=== PATIENT | female | born 1945 | race Caucasian/White ===

== ENCOUNTER 2021-01-22 12:44 | Outpatient (REF) | payer MEDICARE, SELFPAY ==
--- NOTE | ~2021-01-22 | MR_ITS ---
EXAMINATION: MRI BRAIN WITHOUT CONTRAST CLINICAL INFORMATION: Mild cognitive impairment with memory loss. COMPARISON: Brain MRI 12/13/2015. TECHNIQUE: Multiplanar MR imaging of the brain was performed without contrast. FINDINGS: There are scattered nonspecific foci of T2 FLAIR signal hyperintensity within the periventricular white matter. No acute territorial infarct. No pathological magnetic susceptibility artifact. Intracranial vascular flow voids are maintained. There is no intracranial mass effect midline shift. No abnormal extra-axial collection. Lateral and third ventricles are proportionate to the subarachnoid spaces. No hydrocephalus. Midline structures including the cervicomedullary junction are normal. No acute bone marrow signal changes. There is no mastoid middle ear effusion. Mild mucosal thickening within ethmoid air cells. Globes and orbits are symmetric. MR/MR head/brain wo con IMPRESSION: There are scattered chronic small vessel ischemic changes within the periventricular white matter that appear to have slightly progressed when compared to prior imaging from 12/13/2015. No acute territorial infarct or hemorrhage.
== END 2021-01-22 12:45 | disposition home or self-care (01) ==
LOC: HO.MRI 12:44
PROVIDERS: Visit Provider Psychiatry & Neurology Neurology
DX: G31.84 Mild cognitive impairment of uncertain or unknown etiology (principal)
CPT/HCPCS: 70551

== ENCOUNTER 2021-04-27 11:42 | Outpatient (REF) | payer MEDICARE, SELFPAY ==
[2021-04-27 14:05] LABS: MANUAL DIFF FLAG NO
[2021-04-27 14:08] LABS: Basophils Absolute Auto 0.1 X10*3/uL (0.0-0.2); Basophils Percent Auto 0.8 % (0-2); Eosinophils Absolute Auto 0.3 X10*3/uL (0.0-0.4); Eosinophils Percent Auto 4.2 % (0-4); Hematocrit 39.4 % (37-47); Hemoglobin 13.1 g/dl (12.0-16.0); Imm Gran Abs Auto 0.02 X10*3/uL (0.00-0.03); Imm Gran Pct Auto 0.3 % (0.0-0.4); Lymphocytes Percent Auto 27.7 % (20-40); Mean Corpuscular HGB Conc 33.2 g/dl (31.0-35.0); Mean Corpuscular Volume 90.2 fL (80-98); Mean Platelet Volume 9.7 fL (9.4-12.3); Monocytes Absolute Auto 0.8 X10*3/uL (0.1-1.2); Monocytes Percent Auto 11.2 % (2-11); Neutrophils Percent Auto 55.8 % (45-73); Platelet Count 273 X10*3/uL (160-400); Red Blood Count 4.37 X10*6/uL (4.20-5.50); Red Cell Distribution Width 12.4 % (11.0-16.0); White Blood Count 7.1 X10*3/uL (4.8-10.8)
[2021-04-27 14:42] LABS: Alanine Aminotransferase 58 U/L (0-31); Albumin Level 4.3 g/dL (3.5-5.0); Alkaline Phosphatase 74 U/L (39-117); Anion Gap 14 (12-20); Aspartate Amino Transferase 44 U/L (5-31); Bilirubin Total 0.5 mg/dL (0.0-1.0); Blood Urea Nitrogen 22 mg/dL (9-16); Calcium 9.6 mg/dL (8.4-10.2); Carbon Dioxide 27 mmol/L (22-29); Chloride 105 mmol/L (96-108); Cholesterol 171 mg/dL; Estimated Glomerular Filt Rate 53; Glucose Fasting 98 mg/dL (60-99); HDL Cholesterol 42 mg/dL; LDL Cholesterol Calculated 99 mg/dl; Potassium 3.8 mmol/L (3.3-5.1); Sodium 142 mmol/L (135-145); Total Protein 7.5 g/dL (6.5-8.0); Triglycerides 150 mg/dL
[2021-04-27 15:05] LABS: Free T4 (Free Thyroxine) 1.32 ng/dL (0.71-1.85); Thyroid Stimulating Hormone 0.02 uIU/mL (0.32-4.0); Vitamin D 25-OH Total 34.8 ng/mL (>30)
== END 2021-04-27 11:43 | disposition home or self-care (01) ==
LOC: HO.HMGCLDS 11:42
PROVIDERS: PCP Internal Medicine; Visit Provider Internal Medicine
DX: E03.9 Hypothyroidism, unspecified (principal); E78.5 Hyperlipidemia, unspecified; M81.0 Age-related osteoporosis without current pathological fracture; S72.001A Fracture of unspecified part of neck of right femur, initial encounter for closed fracture; Z78.0 Asymptomatic menopausal state
CPT/HCPCS: 36415; 80053; 80061; 82306; 84439; 84443; 85025

== ENCOUNTER 2021-07-26 09:49 | Outpatient (REF) | payer MEDICARE, SELFPAY ==
[2021-07-26 11:16] LABS: Appearance Urine CLEAR; Color Urine YELLOW; Glucose Urine UA NEG (NEG); Leukocyte Esterase Urine TRACE (NEG); Nitrite Urine NEG (NEG); UACC Culture Trigger YES; Urine Blood NEG (NEG); Urine Ketones NEG (NEG); Urine Protein NEG (NEG-TRACE)
[2021-07-26 11:39] LABS: RBC Urine 0 /HPF (0); Squamous Epithelial Cell Urine 1+ /LPF; WBC Urine 0-2 /HPF (0-4)
== END 2021-07-26 09:50 | disposition home or self-care (01) ==
LOC: HO.HMGCLDS 09:49
PROVIDERS: PCP Internal Medicine; Visit Provider Internal Medicine
DX: R41.0 Disorientation, unspecified (principal)
CPT/HCPCS: 81001; 87086

== ENCOUNTER 2021-07-31 10:21 | Outpatient (REF) | payer MEDICARE, SELFPAY ==
[2021-07-31 11:47] LABS: Appearance Urine CLEAR; Color Urine YELLOW; Glucose Urine UA NEG (NEG); Leukocyte Esterase Urine NEG (NEG); Nitrite Urine NEG (NEG); Urine Blood NEG (NEG); Urine Ketones NEG (NEG); Urine Protein NEG (NEG-TRACE)
[2021-07-31 11:48] LABS: MANUAL DIFF FLAG NO
[2021-07-31 11:52] LABS: Basophils Absolute Auto 0.1 X10*3/uL (0.0-0.2); Basophils Percent Auto 0.8 % (0-2); Eosinophils Absolute Auto 0.2 X10*3/uL (0.0-0.4); Eosinophils Percent Auto 3.6 % (0-4); Hematocrit 40.9 % (37.0-47.0); Hemoglobin 13.2 g/dl (12.0-16.0); Imm Gran Abs Auto 0.01 X10*3/uL (0.00-0.03); Imm Gran Pct Auto 0.2 % (0.0-0.4); Lymphocytes Absolute Auto 1.9 X10*3/uL (1.2-4.9); Mean Corpuscular HGB Conc 32.3 g/dl (31.0-35.0); Mean Corpuscular Volume 89.9 fL (80.0-98.0); Mean Platelet Volume 10.5 fL (9.4-12.3); Monocytes Absolute Auto 0.6 X10*3/uL (0.1-1.2); Neutrophils Absolute Auto 3.6 x10*3/uL (2.0-8.3); Neutrophils Percent Auto 56.4 % (45-73); Platelet Count 250 X10*3/uL (160-400); Red Blood Count 4.55 X10*6/uL (4.20-5.50); Red Cell Distribution Width 12.5 % (11.0-16.0); White Blood Count 6.4 X10*3/uL (4.8-10.8)
[2021-07-31 12:19] LABS: Alanine Aminotransferase 46 U/L (0-31); Anion Gap 14 (12-20); Aspartate Amino Transferase 38 U/L (5-31); Blood Urea Nitrogen 12 mg/dL (9-16); Calcium 9.6 mg/dL (8.4-10.2); Carbon Dioxide 27 mmol/L (22-29); Chloride 102 mmol/L (96-108); Cholesterol 157 mg/dL; Estimated Glomerular Filt Rate 43; Glucose Fasting 100 mg/dL (60-99); HDL Cholesterol 41 mg/dL; LDL Cholesterol Calculated 89 mg/dl; Potassium 4.1 mmol/L (3.3-5.1); Sodium 139 mmol/L (135-145); Triglycerides 135 mg/dL
[2021-07-31 12:46] LABS: Free T4 (Free Thyroxine) 1.46 ng/dL (0.71-1.85); Thyroid Stimulating Hormone 0.01 uIU/mL (0.32-4.0); Vitamin D 25-OH Total 37.4 ng/mL (>30)
[2021-07-31 13:13] LABS: Folate > 20.0 ng/mL (> or = 4.0); Vitamin B12 510 pg/mL (200-900)
== END 2021-07-31 10:22 | disposition home or self-care (01) ==
LOC: HO.HMGCLDS 10:21
PROVIDERS: PCP Internal Medicine; Visit Provider Internal Medicine
DX: E03.9 Hypothyroidism, unspecified (principal); E78.5 Hyperlipidemia, unspecified; I10 Essential (primary) hypertension; G31.84 Mild cognitive impairment of uncertain or unknown etiology; G40.209 Localization-related (focal) (partial) symptomatic epilepsy and epileptic syndromes with complex partial seizures, not intractable, without status epilepticus; M81.0 Age-related osteoporosis without current pathological fracture
CPT/HCPCS: 36415; 80048; 80061; 81003; 82306; 82607; 82746; 84439; 84443; 84450; 84460; 85025

== ENCOUNTER 2021-09-04 13:55 | Outpatient (REF) | payer MEDICARE, SELFPAY ==
--- NOTE | ~2021-09-04 | MM_ITS ---
EXAMINATION: BONE DENSITOMETRY CLINICAL INDICATION: Asymptomatic menopausal state. COMPARISON: Baseline BD dated 01/15/2019. TECHNIQUE: Using a [employer] DXA System (software version: 13.1) manufactured by [employer], dual-energy x-ray absorptiometry was performed of the lumbar spine and left hip. The images are of good technical quality. Summary results are attached. FINDINGS: AP SPINE L1-L2 (excluding L3 and L4): The data of L1-L4 has been changed to exclude the L3 and L4 vertebral bodies, because degenerative changes at these levels may cause overestimation of lumbar spine density. Current: BMD 0.901 g/cm2, Z-score -1.0, T-score -2.2, osteopenia, 1.1% decrease from baseline (<5% change is not significant). Baseline: BMD 0.911 g/cm2. LEFT FEMUR, NECK: Current: BMD 0.537 g/cm2, Z-score -2.1, T-score -3.6, osteoporosis. Baseline: BMD 0.667 g/cm2. LEFT FEMUR, TOTAL: Current: BMD 0.598 g/cm2, Z-score -1.9, T-score -3.3, osteoporosis, 8.8% decrease from baseline (<5% change is not significant). Baseline: BMD 0.656 g/cm2. IDENTIFIED RISK FACTORS: Recurrent falls, height loss, history of fracture (adult), menopause. HISTORY OF FRACTURE: Spine, femur/hip. MEDICATIONS: Calcium supplements or multivitamin, vitamin D, bisphosphonates. MM/XR DEXA axial skeleton IMPRESSION: 1. DIAGNOSIS: Severe osteoporosis based on the lowest T-score value of -3.6 in the femur neck and fracture history applying World Health Organization criteria. 2. 10-YEAR FRACTURE RISK PREDICTION, FRAX: According to the guidelines, FRAX calculation should only be performed on patients in the osteopenia bone density category. 3. Treatment Recommendations: NOF guidelines recommend consideration for treatment in postmenopausal women and men age 50 and older presenting with the following: -A hip or vertebral (clinical or morphometric) fracture. -T-score less than or equal to -2.5 at the femoral neck or spine after appropriate evaluation to exclude secondary causes. -Low bone mass at the hip or spine and a 10-year fracture probability by FRAX of greater than or equal to 3% for hip fracture or greater than or equal to 20% for major osteoporotic fracture based on the [place] adapted WHO algorithm. 4. Other Recommendations: All treatment decisions require clinical judgment and consideration of individual patient factors, including patient preferences, comorbidities, previous drug use, risk factors not captured in the FRAX model (e.g. frailty, falls, vitamin D deficiency, increased bone turnover, interval significant decline in bone density) and possible under or overestimation of fracture risk by FRAX. Additional medical evaluation for secondary cause of low bone mineral density may be appropriate. FUTURE SCAN RECOMMENDATION: People with diagnosed cases of osteoporosis or at high risk for fracture should have regular bone mineral density tests. For patients eligible for Medicare, routine testing is allowed once every 2 years. The testing frequency can be increased to one year for patients who have rapidly progressing disease, those who are receiving or discontinuing medical therapy to restore bone mass, or have additional risk factors.
--- NOTE | ~2021-09-04 | MM_ITS ---
EXAMINATION: MM SCREENING DIGITAL BREAST TOMOSYNTHESIS, BILATERAL CLINICAL INFORMATION: Screening. Asymptomatic. The lifetime risk of breast cancer based on the Tyrer-Cuzick Model is 7%. COMPARISON: Mammography: 02/04/2019, 06/27/2006 TECHNIQUE: Digital breast tomosynthesis is performed in both the craniocaudal and mediolateral oblique views along with computer-aided detection (CAD). Synthesized 2D images are generated from the tomosynthesis. Additional exaggerated left CC view is provided. FINDINGS: There are scattered areas of fibroglandular density (ACR BI-RADS breast composition Category b). There are no significant masses, abnormal calcifications, or other abnormalities. Parenchymal pattern is similar to prior studies. There is small dermal lesion overlying the posterior lower right breast. MM/MM tomosynthesis screening BI IMPRESSION: No mammographic evidence of malignancy. ASSESSMENT: BI-RADS 2: Benign RECOMMENDATION: Routine annual mammography screening. This patient's information was entered into a reminder system with a target due date for their next mammogram.
== END 2021-09-04 13:56 | disposition home or self-care (01) ==
LOC: HO.MAMMO 13:55
PROVIDERS: Visit Provider Internal Medicine
DX: Z12.31 Encounter for screening mammogram for malignant neoplasm of breast (principal); Z13.820 Encounter for screening for osteoporosis; M81.0 Age-related osteoporosis without current pathological fracture; Z78.0 Asymptomatic menopausal state; Z79.899 Other long term (current) drug therapy
CPT/HCPCS: 77063; 77067; 77080

== ENCOUNTER 2021-12-04 11:47 | Outpatient (REF) | payer OTHER, SELFPAY ==
[2021-12-04 14:05] LABS: Alanine Aminotransferase 33 U/L (0-31); Anion Gap 11 (12-20); Aspartate Amino Transferase 30 U/L (5-31); Blood Urea Nitrogen 22 mg/dL (9-16); Calcium 10.1 mg/dL (8.4-10.2); Carbon Dioxide 28 mmol/L (22-29); Chloride 106 mmol/L (96-108); Cholesterol 136 mg/dL; Estimated Glomerular Filt Rate 45; Glucose Fasting 101 mg/dL (60-99); HDL Cholesterol 43 mg/dL; LDL Cholesterol Calculated 73 mg/dl; Sodium 141 mmol/L (135-145); Triglycerides 101 mg/dL
[2021-12-04 14:39] LABS: Free T4 (Free Thyroxine) 2.06 ng/dL (0.71-1.85); Thyroid Stimulating Hormone 0.01 uIU/mL (0.32-4.0)
== END 2021-12-04 11:48 | disposition home or self-care (01) ==
LOC: HO.HMGCLDS 11:47
PROVIDERS: Visit Provider Internal Medicine
DX: E03.9 Hypothyroidism, unspecified (principal); M81.0 Age-related osteoporosis without current pathological fracture; E78.5 Hyperlipidemia, unspecified; Z78.0 Asymptomatic menopausal state
CPT/HCPCS: 36415; 80048; 80061; 82306; 84439; 84443; 84450; 84460

== ENCOUNTER → 2022-03-08 14:14 | Outpatient (BNVA) | payer OTHER, SELFPAY | PROVIDERS: PCP Internal Medicine; Visit Provider Internal Medicine Endocrinology, Diabetes & Metabolism | DX: M81.0 Age-related osteoporosis without current pathological fracture (principal) | CPT/HCPCS: 99202 ==

== ENCOUNTER 2022-03-13 12:06 | Outpatient (REF) | payer OTHER, SELFPAY ==
[2022-03-13 14:20] LABS: Phosphorus 4.3 mg/dL (2.7-4.5)
[2022-03-16 22:37] LABS: Prot Elec - Albumin 4.3 g/dL (3.8-4.8); Prot Elec - Alpha1 0.3 g/dL (0.2-0.3); Prot Elec - Alpha2 0.9 g/dL (0.5-0.9); Prot Elec - Beta 1 0.5 g/dL (0.4-0.6); Prot Elec - Beta 2 0.5 g/dL (0.2-0.5); Prot Elec - Gamma 1.1 g/dL (0.8-1.7); Prot Elec - Total Protein 7.6 g/dL (6.1-8.1)
== END 2022-03-13 12:07 | disposition home or self-care (01) ==
LOC: HO.HMGCLDS 12:06
PROVIDERS: PCP Internal Medicine; Visit Provider Internal Medicine Endocrinology, Diabetes & Metabolism
DX: M81.0 Age-related osteoporosis without current pathological fracture (principal)
CPT/HCPCS: 84100; 84165; 86335

== ENCOUNTER 2022-03-23 10:50 | Outpatient (REF) | payer OTHER, SELFPAY ==
[2022-03-23 13:41] LABS: Free T4 (Free Thyroxine) 1.33 ng/dL (0.71-1.85); Thyroid Stimulating Hormone 0.02 uIU/mL (0.32-4.0)
== END 2022-03-23 10:51 | disposition home or self-care (01) ==
LOC: HO.HMGCLDS 10:50
PROVIDERS: PCP Internal Medicine; Visit Provider Internal Medicine
DX: E03.9 Hypothyroidism, unspecified (principal)
CPT/HCPCS: 36415; 84439; 84443

== ENCOUNTER → 2022-06-14 12:42 | Outpatient (BNVA) | payer OTHER, SELFPAY | PROVIDERS: PCP Internal Medicine; Visit Provider Internal Medicine Endocrinology, Diabetes & Metabolism | DX: M81.0 Age-related osteoporosis without current pathological fracture (principal) | CPT/HCPCS: 99212 ==

== ENCOUNTER → 2022-09-13 13:13 | Outpatient (BNVA) | payer OTHER, SELFPAY | PROVIDERS: PCP Internal Medicine; Visit Provider Internal Medicine Endocrinology, Diabetes & Metabolism | DX: M81.0 Age-related osteoporosis without current pathological fracture (principal) | CPT/HCPCS: 99212 ==

== ENCOUNTER → 2022-09-26 16:06 | Outpatient (BNVA) | payer OTHER, SELFPAY | PROVIDERS: PCP Internal Medicine; Visit Provider Internal Medicine Endocrinology, Diabetes & Metabolism | DX: M81.0 Age-related osteoporosis without current pathological fracture (principal) | CPT/HCPCS: 99212 ==

== ENCOUNTER 2022-12-07 11:44 | Outpatient (REF) | payer OTHER, SELFPAY ==
[2022-12-07 13:48] LABS: Anion Gap 13 (12-20); Blood Urea Nitrogen 26 mg/dL (9-16); Calcium 10.9 mg/dL (8.4-10.2); Carbon Dioxide 28 mmol/L (22-29); Chloride 105 mmol/L (96-108); Estimated Glomerular Filt Rate 38; Glucose Fasting 103 mg/dL (60-99); Potassium 4.1 mmol/L (3.3-5.1); Sodium 142 mmol/L (135-145)
[2022-12-07 14:05] LABS: Free T4 (Free Thyroxine) 1.31 ng/dL (0.71-1.85)
== END 2022-12-07 11:45 | disposition home or self-care (01) ==
LOC: HO.HMGCLDS 11:44
PROVIDERS: PCP Internal Medicine; Visit Provider Internal Medicine
DX: E03.9 Hypothyroidism, unspecified (principal); E78.5 Hyperlipidemia, unspecified; I10 Essential (primary) hypertension
CPT/HCPCS: 36415; 80048; 84439

== ENCOUNTER 2023-01-17 11:35 | Outpatient (REF) | payer OTHER, SELFPAY ==
[2023-01-17 14:26] LABS: Anion Gap 13 (12-20); Blood Urea Nitrogen 20 mg/dL (9-16); Calcium 9.8 mg/dL (8.4-10.2); Carbon Dioxide 29 mmol/L (22-29); Chloride 107 mmol/L (96-108); Cholesterol 141 mg/dL; Estimated Glomerular Filt Rate 41; Glucose Fasting 94 mg/dL (60-99); HDL Cholesterol 47 mg/dL; LDL Cholesterol Calculated 77 mg/dl; Sodium 145 mmol/L (135-145); Triglycerides 86 mg/dL
[2023-01-20 15:24] LABS: Calcium (PTHI) 9.8 mg/dL (8.6-10.4); PTHI 33 pg/mL (16-77)
[2023-01-21 07:24] LABS: Calcium, Ionized 5.1 mg/dL (4.7-5.5)
== END 2023-01-17 11:36 | disposition home or self-care (01) ==
LOC: HO.HMGCLDS 11:35
PROVIDERS: PCP Internal Medicine; Visit Provider Internal Medicine
DX: E78.5 Hyperlipidemia, unspecified (principal); E83.52 Hypercalcemia; R79.89 Other specified abnormal findings of blood chemistry; I10 Essential (primary) hypertension
CPT/HCPCS: 36415; 80048; 80061; 82330; 83970

== ENCOUNTER 2023-03-28 12:39 | Outpatient (AMB) | payer OTHER, SELFPAY ==
[2023-03-28 13:00] VITALS: BP 110/58; PULSE 66; BMI 23.6
--- NOTE | 2023-03-28 13:00 | A.OFFVIS_ITS ---
Intake Vital Signs 03/28/23 13:00 Height 5 ft 7.4 in Weight 152 lb 8.958 oz BMI 23.6 BP 110/58 L Blood Pressure Location Rt brachial Position Sitting Pulse 66 Intake Visit Reasons: f/u osteoporosis Intake Note: Pt is here for osteoporosis follow-up Preparer Making Department Required: No Accompanied by: Self / Same As Patient Allergies amoxicillin Allergy (Unknown, Verified 03/28/23 13:06) throat swelling ibuprofen [From Advil] Allergy (Unknown, Verified 03/28/23 13:06) vomitting Penicillins Allergy (Unknown, Verified 03/28/23 13:06) throat swelling Sulfa (Sulfonamide Antibiotics) Allergy (Unknown, Verified 03/28/23 13:06) severe hives lisinopril Adverse Reaction (Unknown, Verified 03/28/23 13:06) cough sodium chloride Adverse Reaction (Unknown, Verified 03/28/23 13:06) vomiting Medication List - Last Reconciled 03/28/23 by Tej Heath abaloparatide (Tymlos) 80 mcg (0.04 mL) subcut DAILY [adult disposable [id number] As directed] aspirin (Adult Aspirin Regimen) 81 mg PO DAILY atorvastatin 10 mg PO DAILY clonazepam 1 mg PO BEDTIME PRN hydrochlorothiazide 25 mg PO QAM lamotrigine 100 mg PO BID levothyroxine 150 mcg PO DAILY losartan 100 mg PO DAILY metoprolol succinate ER 50 mg PO QAM paroxetine HCl 40 mg PO DAILY trazodone 200 mg PO BEDTIME HPI HPI Comments History of Present Illness Details 77 YO [Female] with is seen in consultation at the request of PCP for Osteoporosis. Patient is a poor historian and she comes with a [employer] with does not have much knowledge of her history First diagnosed in 40 yrs ago? . Received treatment in the past with alendronate ,unclear how long . Not sure why stopped . History of pathologic fracture R hip in 2017 and pelvis fx 2 yrs ago Not taking servings of dietary calcium per day Not Takes Calcium supplement . Takes MVI with IU of Vitamin D daily. Denies ever using PPI, anticoagulant, takes antiepileptic or glucocorticoid medication. 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 UTD on dental cleanings and sees dentist every [address] There is planned upcoming dental work but no extractions. DXA dated 09/04/2021:AP SPINE L1-L2 (excluding L3 and L4): The data of L1-L4 has been changed to exclude the L3 and L4 vertebral bodies, because degenerative changes at these levels may cause overestimation of lumbar spine density. Current: BMD 0.901 g/cm2, Z-score -1.0, T-score -2.2, osteopenia, 1.1% decrease from baseline (<5% change is not significant). Baseline: BMD 0.911 g/cm2. LEFT FEMUR, NECK: Current: BMD 0.537 g/cm2, Z-score -2.1, T-score -3.6, osteoporosis. Baseline: BMD 0.667 g/cm2. LEFT FEMUR, TOTAL: Current: BMD 0.598 g/cm2, Z-score -1.9, T-score -3.3, osteoporosis, 8.8% decrease from baseline (<5% change is not significant). Baseline: BMD 0.656 g/cm2. Labs: secondary workup was negative. Patient was taking Tymlos. Tolerated Tymlos nicely, Started 12/2022 for about 3 mos PFSH Medical History (Updated 12/09/22 @ 14:13 by Lori Frank MD) Acquired hypothyroidism Alzheimer's dementia Bipolar disorder Breast cancer screening by mammogram Breast cancer screening by mammogram Complex partial seizure Displaced fracture of right femoral neck Dyslipidemia Elevated serum creatinine Essential hypertension Hearing impairment Hypercalcemia Lumbar stenosis Memory difficulties Mild cognitive impairment with memory loss Osteoporosis Pain of right lateral upper thigh Postmenopause Recurrent falls Surgical History History of dental surgery History of hip surgery History of right hip hemiarthroplasty Tongue lesion Family History Father Lung cancer Smoker Substance use disorder Mother HTN (hypertension) Diabetes mellitus CVD (cardiovascular disease) Substance use disorder Breast cancer Brother Schizophrenia Sister Depression Sister Substance use disorder Sister No problems noted. Sister No problems noted. Daughter No problems noted. Brother Substance use disorder Brother Mental health disorder Social History Housing: House Patient Tobacco Use Status: Former Tobacco user Years Smoked: 28 yrs e-Cigarette/Vaping Use: Never Used service: No Current occupational status: disabled Cognitive needs: No Hearing needs: No Vision needs: Yes Physical Exam Vital Signs: BMI result Body Mass Index 23.6 Assessment & Plan Assessment & Plan (1) Osteoporosis: Code(s): M81.0 - Age-related osteoporosis without current pathological fracture Plan: This 76-year-old white female with a history of osteoporosis and R femur fracturein 2017. Took alendronate in past. secondary workup was negative Plan is to continue the Tymlos. Coding Level of Care Code Est Pt Level 3 (22892) Diagnoses Osteoporosis M81.0
== END 2023-03-28 13:16 | disposition home or self-care (01) ==
PROVIDERS: PCP Internal Medicine; Referring Provider Internal Medicine; Visit Provider Internal Medicine Endocrinology, Diabetes & Metabolism
DX: M81.0 Age-related osteoporosis without current pathological fracture (principal)
CPT/HCPCS: 99213

== ENCOUNTER → 2023-03-28 12:39 | Outpatient (BNVA) | payer OTHER, SELFPAY | PROVIDERS: Visit Provider Internal Medicine Endocrinology, Diabetes & Metabolism | DX: M81.0 Age-related osteoporosis without current pathological fracture (principal) | CPT/HCPCS: 99212 ==

== ENCOUNTER 2024-03-10 13:26 | Outpatient (AMB) | payer OTHER, SELFPAY ==
[2024-03-10 13:29] VITALS: BP 140/80; PULSE 62; O2SAT 96; BMI 25.2
--- NOTE | 2024-03-10 13:29 | A.OFFPC_ITS ---
Vital Signs 03/10/24 13:29 Height 5 ft 7 in Weight 161 lb BMI 25.2 BP 140/80 H Blood Pressure Location Rt brachial Position Sitting Pulse 62 Pulse Source Pulse Oximeter Pulse Oximetry (%) 96 Oxygen Delivery Method Room Air Intake Visit Reasons: Followup meds Intake Note: Pt is here today f/u meds and c/o shakes Allergies amoxicillin Allergy (Unknown, Verified 03/10/24 13:52) throat swelling ibuprofen [From Advil] Allergy (Unknown, Verified 03/10/24 13:52) vomitting Penicillins Allergy (Unknown, Verified 03/10/24 13:52) throat swelling Sulfa (Sulfonamide Antibiotics) Allergy (Unknown, Verified 03/10/24 13:52) severe hives lisinopril Adverse Reaction (Unknown, Verified 03/10/24 13:52) cough sodium chloride Adverse Reaction (Unknown, Verified 03/10/24 13:52) vomiting Medication List - Last Reconciled 03/10/24 by Lori Frank MD abaloparatide (Tymlos) 80 mcg (0.04 mL) subcut DAILY [adult disposable uwxtba-Iumo-xmg As directed] aspirin (Adult Aspirin Regimen) 81 mg PO DAILY atorvastatin 10 mg PO DAILY clonazepam 1 mg PO BEDTIME PRN hydrochlorothiazide 25 mg PO QAM lamotrigine 100 mg PO BID levothyroxine 150 mcg PO DAILY losartan 100 mg PO DAILY metoprolol succinate ER 50 mg PO QAM paroxetine HCl 40 mg PO DAILY trazodone 200 mg PO BEDTIME Tobacco use date assessed: 03/10/24 Fall risk assessment: 1 Fall in past year Last assessed Fall Risk: 03/10/24 Dental Screening Did you have a dental visit in the last 12 months?: Yes Did you have a dental problem in the last 6 months where you did not have access to dental care?: Yes Was dental information given to patient?: Patient has dentist HPI Followup meds HPI Details 78 year-old lady here today follow-up on her lipids, hypothyroidism, hypertension. Has osteoporosis currently on Tymlos, sees Dr. Means. She has been feeling well, no complaints of chest pain or headaches or lightheadedness. She however has been noticing frequent shaking in her hands especially when she has to repeat for something. Has been present now for the last several month. However denies having any difficulty eating, and has not been dropping things. Has not interfered with her day-to-day activities but it does bother her when she is outside, and is self-conscious about it. [facility] Medical History (Updated 03/21/24 @ 23:24 by Lori Frank MD) Unsteady gait when walking Tremor of both outstretched hands Hypercalcemia Elevated serum creatinine Alzheimer's dementia Essential hypertension Hearing impairment Displaced fracture of right femoral neck Lumbar stenosis Mild cognitive impairment with memory loss Complex partial seizure Breast cancer screening by mammogram Postmenopause Breast cancer screening by mammogram Bipolar disorder Memory difficulties Acquired hypothyroidism Osteoporosis Dyslipidemia Recurrent falls Pain of right lateral upper thigh Surgical History History of right hip hemiarthroplasty Tongue lesion History of hip surgery History of dental surgery Family History Father Lung cancer Smoker Substance use disorder Mother HTN (hypertension) Diabetes mellitus CVD (cardiovascular disease) Substance use disorder Breast cancer Brother Schizophrenia Sister Depression Sister Substance use disorder Sister No problems noted. Sister No problems noted. Daughter No problems noted. Brother Substance use disorder Brother Mental health disorder Social History Housing: House Patient Tobacco Use Status: Former Tobacco user Years Smoked: 28 yrs e-Cigarette/Vaping Use: Never Used service: No Current occupational status: disabled Cognitive needs: No Hearing needs: No Vision needs: Yes Questionnaire PHQ-9 Over the last 2 weeks, how often have you been bothered by any of the following problems? 1. Little interest or pleasure in doing things: several days 2. Feeling down, depressed, or hopeless: several days 3. Trouble falling or staying asleep, or sleeping too much: several days 4. Feeling tired or having little energy: several days 5. Poor appetite or overeating: not at all 6. Feeling bad about yourself - or that you are a failure or have let yourself or your family down: not at all 7. Trouble concentrating on things, such as reading the newspaper or watching television: not at all 8. Moving or speaking so slowly that other people could have noticed. Or the opposite - being so fidgety or restless that you have been moving around a lot more than usual: not at all 9. Thoughts that you would be better off or of hurting yourself in some way: not at all Total score: 4 Depression Screening Interpretation: Positive (has Bipolar d/o , ff'd by psychiatry and goes to therapy) Depression Screening Follow-up: Existing condition, In treatment and Community Mental Health Worker F/U Depression Screening Done: Yes 26994 - PHQ-9 Billing: Yes Source: Developed by Drs. Jacinto Burrows, Genesis Hubbard, David Clements and colleagues, with an educational akash from [employer]. Thrive Questionnaire Date Thrive assessed: 03/10/24 I am a: Patient What is your living situation today?: I have a steady place to live Within the past 12 months, did the food you bought not last and you didn't have the money to get more?: Never true Within the past 12 months, did you worry whether your food would run out before you got money to buy more?: Never true Do you have trouble paying for medicines?: No Do you have trouble getting transportation to medical appointments?: No Do you have trouble paying your heating and electricity bill?: No Do you have trouble taking care of your child, family member or friend?: No Do you have trouble with day-to-day activities such as bathing, preparing meals, shopping, managing finances, etc.?: No Are you currently unemployed and looking for a job?: No Are you interested in more education?: No THRIVE Score: 0 AUDIT C Alcohol Use Questionnaire (AUDIT-C) 1. How often do you have a drink containing alcohol?: Never Total Score: 0 DRE-7 AMB Questionnaire DRE-7 Date DRE - 7 assessed: 03/10/24 Feeling nervous, anxious, or on edge: 1 = Several days Not being able to stop or control worryin = Several days Worrying too much about different things: 1 = Several days Trouble relaxin = Not at all Being so restless that it is hard to sit still: 0 = Not at all Becoming easily annoyed or irritable: 0 = Not at all Feeling afraid as if something awful might happen: 0 = Not at all Total DRE-7 score (0-4 normal; 5-9 mild; 10-14 moderate; 15-21 severe): 3 Source: Developed by Drs. Jacinto Burrows, Genesis Hubbard, David Clements and colleagues, with an educational akash from [employer]. DRE-7 Assessment Billing DRE-7 Assessment Tool: DRE-7 Assessment 01644 Review of Systems Const Denies fatigue, Denies fever(s) and Denies headache(s) Eyes Reports no additional complaints ENT Denies vertigo, Denies dizziness, Denies headache(s) and Reports hearing loss Card Denies chest pain, Denies rapid heart rate, Denies irregular heart rhythm, Denies palpitations and Denies dyspnea Resp Denies cough and Denies dyspnea GI Reports no additional complaints Reports no additional complaints Musc Reports abnormal gait (Uses a cane), Reports back pain (Lower back), Denies myalgias, Reports arthralgias (Right hip), Denies joint swelling, Reports numbness (Toes in her feet) and Reports stiffness Skin/Breast Reports nail changes (Thick, deformity in nail in both feet) Neuro Reports abnormal gait (Uses a cane), Denies vertigo, Denies dizziness, Denies headache(s), Reports memory loss, Reports numbness (Toes in her feet) and Denies seizure-like activity Psych Reports as per HPI (Followed by Dr. Manrique and gets regular counseling) and Reports memory loss Endo Reports no additional complaints, Denies fatigue and Denies palpitations Trung/Lymph Reports no additional complaints Aller/Immun Reports no additional complaints Physical exam (Primary Care) Vital Signs: Last Vital Signs Pulse 62 03/10/24 13:29 BP 140/80 H 03/10/24 13:29 Pulse Ox 96 03/10/24 13:29 Oxygen Delivery Method Room Air 03/10/24 13:29 BMI result Body Mass Index 25.2 Tobacco/Smoking Status: Tobacco use Status Tobacco use date assessed 03/10/24 03/10/24 13:41 Patient Tobacco Use Status Former Tobacco user 03/10/24 13:30 e-Cigarette/Vaping Use Never Used 03/10/24 13:30 PHQ-9: PHQ-9 Score PHQ-9: Total score 7 03/11/24 11:27 Depression Screening Interpretation: Positive (has Bipolar d/o , ff'd by psychiatry and goes to therapy) Depression Screening Follow-up: Existing condition, In treatment and Community Mental Health Worker F/U Thrive Assessment: Date of Thrive Assessment Date Thrive assessed 03/10/24 03/10/24 13:43 Const Other: Const General:?healthy appearing, comfortable and no acute distress, accompanied by daughter Orientation/consciousness:?patient oriented x3 Limitations:?walks with cane HENMT General nose exam:?Normal external nose present, Normal nasal mucous membranes , no nasal discharge present Mouth:?Normal oral and palatal mucosa present, oropharynx normal and moist mucous membranes Eyes General:?appearance normal, both eyes and all related structures Neck Neck:?Yes full ROM, Yes no lymphadenopathy and Yes supple Resp Effort & Inspection:?normal respiratory effort and able to speak in complete sentences Auscultation:?clear to auscultation bilaterally Cardio Rate:?regular rate Rhythm:?regular rhythm Heart sounds:?S1 normal heart sound present and S2 normal heart sound present GI Inspection:?Yes normal to inspection Palpation (GI):?Soft to palpation, nontender and no masses Auscultation:?normal bowel sounds Neuro General:?patient oriented x3, positive intentional tremors noted in both hands Cranial nerves:?Yes Equal, round and reactive pupils present Cognition (Neuro):?normal cognition Motor exam (neuro):?5/5 motor strength present throughout Extrem General:?Yes no joint enlargement, Yes no pedal edema and Yes no calf tenderness Assessment and Plan Assessment & Plan (1) Tremor of both outstretched hands: Code(s): R25.1 - Tremor, unspecified Plan: Likely essential tremors, will order vitamin B12, TSH vitamin-D and folic acid level. Neurology consult ordered (2) Dyslipidemia: Code(s): E78.5 - Hyperlipidemia, unspecified Plan: Fasting lipid panel ordered, continue on atorvastatin 10 mg daily, reinforced importance of following a low-cholesterol diet and staying active. (3) Osteoporosis: Code(s): M81.0 - Age-related osteoporosis without current pathological fracture Qualifiers: Osteoporosis type: age-related Presence of current pathological fracture: without current pathological fracture Qualified Code(s): M81.0 - Age- related osteoporosis without current pathological fracture Plan: Currently on Tymlos, followed by Dr. Means (4) Acquired hypothyroidism: Code(s): E03.9 - Hypothyroidism, unspecified Plan: Ordered free T4 and TSH level, currently on levothyroxine 150 mcg taken daily in a.m. (5) Essential hypertension: Code(s): I10 - Essential (primary) hypertension (6) Breast cancer screening by mammogram: Code(s): Z12.31 - Encounter for screening mammogram for malignant neoplasm of breast Plan: Screening mammogram ordered Plan Continue metoprolol succinate ER 50 mg daily in a.m., losartan 100 mg daily and hydrochlorothiazide 25 mg 1 tablet in a.m.. Reinforced importance of following a low-salt diet Orders: Orders Vitamin D 25-OH Total 03/10/24 M81.0 - Age-related osteoporosis without current pathological fracture, E78.5 - Hyperlipidemia, unspecified, E03.9 - Hypothyroidism, unspecified, I10 - Essential (primary) hypertension Vitamin B12 and Folate 03/10/24 M81.0 - Age-related osteoporosis without current pathological fracture, E78.5 - Hyperlipidemia, unspecified, E03.9 - Hypothyroidism, unspecified, I10 - Essential (primary) hypertension Alanine Aminotransferase 03/10/24 M81.0 - Age-related osteoporosis without c urrent pathological fracture, E78.5 - Hyperlipidemia, unspecified, E03.9 - Hypothyroidism, unspecified, I10 - Essential (primary) hypertension Aspartate Amino Transferase 03/10/24 M81.0 - Age-related osteoporosis without current pathological fracture, E78.5 - Hyperlipidemia, unspecified, E03.9 - Hypothyroidism, unspecified, I10 - Essential (primary) hypertension Basic Metabolic Panel Fasting 03/10/24 M81.0 - Age-related osteoporosis without current pathological fracture, E78.5 - Hyperlipidemia, unspecified, E03.9 - Hypothyroidism, unspecified, I10 - Essential (primary) hypertension MM tomosynthesis screening BI 03/10/24 Z12.31 - Encounter for screening mammogram for malignant neoplasm of breast Lipid Panel 03/10/24 M81.0 - Age-related osteoporosis without current pathological fracture, E78.5 - Hyperlipidemia, unspecified, E03.9 - Hypothyroidism, unspecified, I10 - Essential (primary) hypertension Thyroid Stimulating Hormone 03/10/24 M81.0 - Age-related osteoporosis without current pathological fracture, E78.5 - Hyperlipidemia, unspecified, E03.9 - H ypothyroidism, unspecified, I10 - Essential (primary) hypertension Free T4 (Free Thyroxine) 03/10/24 M81.0 - Age-related osteoporosis without current pathological fracture, E78.5 - Hyperlipidemia, unspecified, E03.9 - Hypothyroidism, unspecified, I10 - Essential (primary) hypertension Referrals Neurology Referral R25.1 - Tremor, unspecified Coding Level of Care Code Est Pt Level 4 (42885) Complex EM visit Add On G2211 Diagnoses Tremor of both outstretched hands R25.1 Dyslipidemia E78.5 Age-related osteoporosis without current pathological fracture M81.0 Osteoporosis type: age-related Presence of current pathological fracture: without current pathological fracture Acquired hypothyroidism E03.9 Essential hypertension I10 Breast cancer screening by mammogram Z12.31 Additional Codes DRE-7 Assessment Billing - DRE-7 Assessment Tool: DRE-7 Assessment 89271 ([id number])
== END 2024-03-10 14:41 | disposition home or self-care (01) ==
PROVIDERS: PCP Internal Medicine; Visit Provider Internal Medicine
DX: R25.1 Tremor, unspecified (principal); E78.5 Hyperlipidemia, unspecified; M81.0 Age-related osteoporosis without current pathological fracture; E03.9 Hypothyroidism, unspecified; I10 Essential (primary) hypertension; Z12.31 Encounter for screening mammogram for malignant neoplasm of breast
CPT/HCPCS: 99214; G2211

== ENCOUNTER 2024-10-12 12:44 | Outpatient (AMB) | payer OTHER, SELFPAY ==
--- NOTE | 2024-10-12 12:49 | A.OFFVIS_ITS ---
Vital Signs 10/12/24 12:52 Height 5 ft 6.57 in Weight 172 lb 9.951 oz BMI 27.4 BP 114/70 Blood Pressure Location Rt brachial Position Sitting Pulse 72 Pulse Source Pulse Oximeter Intake Visit Reasons: Osteoporosis + screening Intake Note: Patient present today for Osteoporosis follow up. Tire Balancer Required: No Accompanied by: Self / Same As Patient Allergies amoxicillin Allergy (Unknown, Verified 10/12/24 12:53) throat swelling ibuprofen [From Advil] Allergy (Unknown, Verified 10/12/24 12:53) vomitting Penicillins Allergy (Unknown, Verified 10/12/24 12:53) throat swelling Sulfa (Sulfonamide Antibiotics) Allergy (Unknown, Verified 10/12/24 12:53) severe hives lisinopril Adverse Reaction (Unknown, Verified 10/12/24 12:53) cough sodium chloride Adverse Reaction (Unknown, Verified 10/12/24 12:53) vomiting Medication List - Last Reconciled 10/12/24 by Jacinto Means MD abaloparatide (Tymlos) 80 mcg (0.04 mL) subcut DAILY [adult disposable lfigim-Dlbp-hdh As directed] aspirin (Adult Aspirin Regimen) 81 mg PO DAILY atorvastatin 10 mg PO DAILY clonazepam 1 mg PO BEDTIME PRN hydrochlorothiazide 25 mg PO QAM lamotrigine 100 mg PO BID levothyroxine 150 mcg PO DAILY losartan 100 mg PO DAILY metoprolol succinate ER 50 mg PO QAM paroxetine HCl 40 mg PO DAILY trazodone 200 mg PO BEDTIME HPI Comments Details: 79 YO [Female] with is seen in consultation at the request of PCP for Osteoporosis. 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 . Received treatment in the past with alendronate ,unclear how long . Not sure why stopped . History of pathologic fracture R hip in 2017 and pelvis fx 2 yrs ago Not taking servings of dietary calcium per day Not Takes Calcium supplement . Takes MVI with IU of Vitamin D daily. Denies ever using PPI, anticoagulant, takes antiepileptic or glucocorticoid medication. 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 UTD on dental cleanings and sees dentist every [address] There is planned upcoming dental work but no extractions. DXA dated 09/04/2021:AP SPINE L1-L2 (excluding L3 and L4): The data of L1-L4 has been changed to exclude the L3 and L4 vertebral bodies, because degenerative changes at these levels may cause overestimation of lumbar spine density. Current: BMD 0.901 g/cm2, Z-score -1.0, T-score -2.2, osteopenia, 1.1% decrease from baseline (<5% change is not significant). Baseline: BMD 0.911 g/cm2. LEFT FEMUR, NECK: Current: BMD 0.537 g/cm2, Z-score -2.1, T-score -3.6, osteoporosis. Baseline: BMD 0.667 g/cm2. LEFT FEMUR, TOTAL: Current: BMD 0.598 g/cm2, Z-score -1.9, T-score -3.3, osteoporosis, 8.8% decrease from baseline (<5% change is not significant). Baseline: BMD 0.656 g/cm2. Labs: secondary workup was negative. Patient was taking Tymlos. , Started 12/2022 for about 3 mos then stopped.Back on Tymlos for 8 mos according to pt [facility] Medical History (Updated 03/21/24 @ 23:24 by Lori Frank MD) Unsteady gait when walking Tremor of both outstretched hands Hypercalcemia Elevated serum creatinine Alzheimer's dementia Essential hypertension Hearing impairment Displaced fracture of right femoral neck Lumbar stenosis Mild cognitive impairment with memory loss Complex partial seizure Breast cancer screening by mammogram Postmenopause Breast cancer screening by mammogram Bipolar disorder Memory difficulties Acquired hypothyroidism Osteoporosis Dyslipidemia Recurrent falls Pain of right lateral upper thigh Surgical History History of right hip hemiarthroplasty Tongue lesion History of hip surgery History of dental surgery Family History Father Lung cancer Smoker Substance use disorder Mother HTN (hypertension) Diabetes mellitus CVD (cardiovascular disease) Substance use disorder Breast cancer Brother Schizophrenia Sister Depression Sister Substance use disorder Sister No problems noted. Sister No problems noted. Daughter No problems noted. Brother Substance use disorder Brother Mental health disorder Social History Housing: House Patient Tobacco Use Status: Former Tobacco user Years Smoked: 28 yrs e-Cigarette/Vaping Use: Never Used service: No Current occupational status: disabled Cognitive needs: No Hearing needs: No Vision needs: Yes Physical Exam Vital Signs: Last Vital Signs Pulse 72 10/12/24 12:52 BP 114/70 10/12/24 12:52 BMI result Body Mass Index 27.4 Assessment & Plan Assessment & Plan (1) Osteoporosis: Code(s): M81.0 - Age-related osteoporosis without current pathological fracture Category: Medical Qualifiers: Osteoporosis type: age-related Presence of current pathological fracture: without current pathological fracture Qualified Code(s): M81.0 - Age- related osteoporosis without current pathological fracture Plan: This 76-year-old white female with a history of osteoporosis and R femur fracturein 2017. Took alendronate in past. secondary workup was negative. Currently on Tymlos for the past 8 months time Plan is to continue the Tymlos for full 18 months' course. We will recheck DEXA bone density in about 5 months' time Coding Level of Care Code Est Pt Level 3 (40580) Diagnoses Age-related osteoporosis without current pathological fracture M81.0 Osteoporosis type: age-related Presence of current pathological fracture: without current pathological fracture
[2024-10-12 12:52] VITALS: BP 114/70; PULSE 72; BMI 27.4
--- OUTSIDE RECORDS SUMMARY | 2024-10-12 13:35 | XMS_ITS | Clinical Summary ---
Author Organization [facility] ity Address [address] [place] [address] Care Team Providers Care Draw Frame Runner Name Role Phone Unavailable Primary Care Provider Unavailabl e Social History Tobacco Use Types Packs/Day Years Used Date Smoking Tobacco: Never Assessed Sex and Gender Information Value Date Recorded Sex Assigned at Not on file Gender Identity Not on file Sexual Orientation Not on file Plan of Treatment Health Maintenance Due Date Last Done Comments DTaP,Tdap,and Td Vaccines (1 - Tdap) 1966 Zoster Vaccines (1 of 2) 1997 Pneumococcal Vaccine: 65+ Ye ars (1 of 1 - PCV) 2012 RSV Immunization Patients 60 + Years Old (1 - 1-dose 75+ series) 2022 Depression Screening 08/18/2022 Falls Risk Assessment 08/18/2022 Hepatitis C Screening 08/18/2022 Osteoporosis Screening (Bone Density Screening) 08/18/2022 Social Influencers of Health Screening 08/18/2022 COVID-19 Vaccine ( - 2023-2 5 season) 2024 Influenza Vaccine (#1) 2024 HIB Vaccines Aged Out No longer eligi ble based on patient's age to complete this topic HPV Vaccines Aged Out No longer eligi ble based on patient's age to complete this topic Hepatitis A Vaccines Aged Out No long er eligible based on patient's age to complete this topic Hepatitis B Vaccines Aged Out No long er eligible based on patient's age to complete this topic IPV Vaccines Aged Out No longer eligi ble based on patient's age to complete this topic MMR Vaccines Aged Out No longer eligi ble based on patient's age to complete this topic Meningococcal ACWY Vaccine Aged Out N o longer eligible based on patient's age to complete this topic RSV Immunization Patients Un reece 20 months Aged Out No longer eligible b ased on patient's age to complete this topic Varicella Vaccines Aged Out No longer eligible based on patient's age to complete this topic
--- OUTSIDE RECORDS SUMMARY | 2024-10-12 13:35 | XMS_ITS | Clinical Summary ---
Author Organization [facility] Facility Address [address] [place] [address] Care Team Providers Care Training And Development Director Name Role Phone Wilber Frank MD Primary Care Provider +1- [phone] Family History Medical History Relation Comments Diabetes Father Heart disease Father Hypertension Father Heart disease Mother Hypertension Mother Relation Status Comments Father Mother Social History Tobacco Use Types Packs/Day Years Used Date Smoking Tobacco: Never Alcohol Use Standard Drinks/Week Comments No 0 (1 standard drink = 0.6 oz pur e alcohol) Comments Unknown Sex and Gender Information Value Date Recorded Sex Assigned at Not on file Legal Sex Female 4:47 PM EST Gender Identity Not on file Sexual Orientation Not on file Plan of Treatment Health Maintenance Due Date Last Done Comments Pneumococcal Vaccine: 65+ Ye ars (1 of 1 - PCV) 2012 Influenza Vaccine (#1) 2024 Hepatitis B Vaccine Aged Out No longe r eligible based on patient's age to complete this topic Insurance [facility] CARE DUAL SNP ([id number]) [place] [id number] [facility] ONE CARE DUAL SNP ([id number]) [place] [id number] Care Teams Training And Development Director Relationship Specialty Start Date End Date Wilber Frank MD 1959 [facility] [address] [place] [address] PCP - General 09/25/20
== END 2024-10-12 13:10 | disposition home or self-care (01) ==
PROVIDERS: PCP Internal Medicine; Visit Provider Internal Medicine Endocrinology, Diabetes & Metabolism
DX: M81.0 Age-related osteoporosis without current pathological fracture (principal)
CPT/HCPCS: 99213

== ENCOUNTER → 2024-10-12 12:44 | Outpatient (BNVA) | payer OTHER, SELFPAY | PROVIDERS: PCP Internal Medicine; Visit Provider Internal Medicine Endocrinology, Diabetes & Metabolism | DX: M81.0 Age-related osteoporosis without current pathological fracture (principal) | CPT/HCPCS: 99212 ==

== ENCOUNTER 2024-12-23 13:27 | Outpatient (AMB) | payer OTHER, SELFPAY ==
--- NOTE | 2024-12-23 13:47 | MHC.OFFWIV ---
Intake Vital Signs 12/23/24 13:59 BP 120/76 Blood Pressure Location Rt brachial Position Sitting Pulse 74 Pulse Source Pulse Oximeter Pulse Oximetry (%) 97 Oxygen Delivery Method Room Air Intake Visit Reasons: EP UTI? Intake Note: Patient here Patient Tobacco Use Status: Former Tobacco user Allergies amoxicillin Allergy (Unknown, Verified 12/23/24 13:59) throat swelling ibuprofen [From Advil] Allergy (Unknown, Verified 12/23/24 13:59) vomitting Penicillins Allergy (Unknown, Verified 12/23/24 13:59) throat swelling Sulfa (Sulfonamide Antibiotics) Allergy (Unknown, Verified 12/23/24 13:59) severe hives lisinopril Adverse Reaction (Unknown, Verified 12/23/24 13:59) cough sodium chloride Adverse Reaction (Unknown, Verified 12/23/24 13:59) vomiting Do you need a note to return to daycare/school/sports/work: No HPI HPI Comments History of Present Illness Details 79 y/o female patient who presented to the walk in clinic due to Urinary Tract symptoms concern. Unable to communicate clearly with Patient due to Dementia disease process. She was brought in by [employer] who left the clinic - Had to call Patient's Daughter for History. Patient's Daughter name is Jenn. Jenn reports that Patient had some altered mental status; became confused, paranoid and aggressive yesterday evening and Visiting Nurse worried it could be Urinary tract infection and suggested Patient brought to for further evaluation and testing. Jenn reports that she used a Home Kit and tested Patient for UTI which turned out to be Positive. Rapid Urinalysis today in the Office negative. Unable to obtain ROS due to Dementia with confusion. [facility] Medical History (Updated 12/23/24 @ 14:41 by Jessica Chaidez NP) Urinary tract infection symptoms Unsteady gait when walking Tremor of both outstretched hands Hypercalcemia Elevated serum creatinine Alzheimer's dementia Essential hypertension Hearing impairment Displaced fracture of right femoral neck Lumbar stenosis Mild cognitive impairment with memory loss Complex partial seizure Breast cancer screening by mammogram Postmenopause Breast cancer screening by mammogram Bipolar disorder Memory difficulties Acquired hypothyroidism Osteoporosis Dyslipidemia Recurrent falls Pain of right lateral upper thigh Surgical History History of right hip hemiarthroplasty Tongue lesion History of hip surgery History of dental surgery Family History Father Lung cancer Smoker Substance use disorder Mother HTN (hypertension) Diabetes mellitus CVD (cardiovascular disease) Substance use disorder Breast cancer Brother Schizophrenia Sister Depression Sister Substance use disorder Sister No problems noted. Sister No problems noted. Daughter No problems noted. Brother Substance use disorder Brother Mental health disorder Social History Housing: House Patient Tobacco Use Status: Former Tobacco user Years Smoked: 28 yrs e-Cigarette/Vaping Use: Never Used service: No Current occupational status: disabled Cognitive needs: No Hearing needs: No Vision needs: Yes Review of Systems Const Details: ROS Unobtainable due to Disease process (Dementia). Unobtainable due to mental condition, Unobtainable due to mental status and Other Physical Exam Vital Signs: Last Vital Signs Pulse 74 12/23/24 13:59 BP 120/76 12/23/24 13:59 Pulse Ox 97 12/23/24 13:59 Oxygen Delivery Method Room Air 12/23/24 13:59 Const General: no acute distress Limitations: behavioral limitations General: Yes no CVA tenderness Back/Spine/Pelvis Back: no CVA tenderness Neuro General: gait normal and moves all extremities Psych Attitude: cooperative Assessment & Plan Assessment & Plan (1) Urinary tract infection symptoms: Code(s): R39.9 - Unspecified symptoms and signs involving the genitourinary system Plan: Advised Daughter that In-office Rapid Urinalysis was negative. Will continue to monitor Advise Daughter to bring Mom to the ED if symptoms worsen. Orders: Orders AMB Urinalysis Automated Today Z13.9 - Encounter for screening, unspecified Coding Level of Care Code Est Pt Level 4 (71833) Diagnoses Urinary tract infection symptoms R39.9 Time Spent (min) 20
[2024-12-23 13:59] VITALS: BP 120/76; PULSE 74; O2SAT 97
--- OUTSIDE RECORDS SUMMARY | 2024-12-23 16:12 | XMS_ITS | Clinical Summary ---
Author Organization [facility] it Address [address] [place] [address] Care Team Providers Care Development Professional Name Role Phone Unavailable Primary Care Provider Unavailabl e Social History Tobacco Use Types Packs/Day Years Used Date Smoking Tobacco: Never Assessed Comments Unknown Sex and Gender Information Value Date Recorded Sex Assigned at Not on file Legal Sex Female 6:23 AM EST Gender Identity Not on file Sexual Orientation Not on file Plan of Treatment Health Maintenance Due Date Last Done Comments DTaP,Tdap,and Td Vaccines (1 - Tdap) 1966 Pneumococcal Vaccine: 50+ Ye ars (1 of 1 - PCV) 1997 Zoster Vaccines (1 of 2) 1997 RSV Immunization Adult Patie nts (1 - 1-dose 75+ series) 2022 Depression Screening 08/18/2022 Falls Risk Assessment 08/18/2022 Hepatitis C Screening 08/18/2022 Osteoporosis Screening (Bone Density Screening) 08/18/2022 Social Influencers of Health Screening 08/18/2022 COVID-19 Vaccine (2023-2 5 season) 2024 Influenza Vaccine (#1) 2024 [...] patient's age to complete this topic Meningococcal B Vaccine Aged Out No l onger eligible based on patient's age to complete this topic RSV Immunization Patients Un reece 20 months Aged Out No longer eligible b ased on patient's age to complete this topic Varicella Vaccines Aged Out No longer eligible based on patient's age to complete this topic
--- OUTSIDE RECORDS SUMMARY | 2024-12-23 16:12 | XMS_ITS | Clinical Summary ---
Author Organization [facility] Facility Address [address] [place] [address] Care Team Providers Care Railroad Watchman Name Role Phone Wilber Frank MD Primary Care Provider +1- [phone] Family History Medical History Relation Comments Diabetes [...] Due Date Last Done Comments Pneumococcal Vaccine: 50+ Ye ars (1 of 1 - PCV) 2012 Influenza Vaccine (Season Ended) 2025 Hepatitis B Vaccine Aged Out No longe r eligible based on patient's age to complete this topic Insurance [facility] Care Dual SNP ([id number]) [place] [id number] [facility] One Care Dual SNP ([id number]) [place] [id number] Care Teams Railroad Watchman Relationship Specialty Start Date End Date Wilber Frank MD 1959 [facility] [address] [place] [address] PCP - General 09/25/20
== END 2024-12-23 15:15 | disposition home or self-care (01) ==
PROVIDERS: PCP Internal Medicine; Visit Provider Nurse Practitioner Family
DX: R39.9 Unspecified symptoms and signs involving the genitourinary system (principal); Z13.9 Encounter for screening, unspecified

== ENCOUNTER → 2024-12-23 13:27 | Outpatient (BNVA) | payer OTHER, SELFPAY | PROVIDERS: PCP Internal Medicine; Visit Provider Nurse Practitioner Family | DX: R39.9 Unspecified symptoms and signs involving the genitourinary system (principal) | CPT/HCPCS: 81003; 99212 ==

== ENCOUNTER 2025-04-20 13:23 | Outpatient (REF) | payer OTHER, SELFPAY ==
--- NOTE | ~2025-04-20 | MM_ITS ---
EXAMINATION: DXA BONE DENSITY AXIAL HISTORY: M81.0 - Age-related osteoporosis without current pathological fracture TECHNIQUE: GIDEEN Dual energy absorptiometry (DEXA) of the lumbar spine, total left hip, and femoral neck was performed. COMPARISON: Comparison is made with the prior examination dated 09/04/2021. FINDINGS: The bone mineral density of the lumbar spine is 1.087 g/cm2, corresponding to a T-score of -0.7, and a Z-score of 0.7. This is indicative of normal bone mineral density. This represents a BMD change of 13.2% compared to the prior exam. This is statistically significant. The bone mineral density of the left total hip is 0.687 g/cm2, corresponding to a T-score of -2.5, and a Z-score of -0.9. This is indicative of osteoporosis. This represents a BMD change of 14.9% compared to the prior exam. This is statistically significant. The bone mineral density of the left femoral neck is 0.725 g/cm2, corresponding to a T-score of -2.2, and a Z-score of -0.4. This is indicative of osteopenia. This represents a BMD change of 35.0% compared to the prior exam. MM/XR DEXA axial skeleton IMPRESSION: Based on bone mineral density, and according to World Health Organization (WHO) criteria, the diagnosis is consistent with osteoporosis. Statistically, 68% of repeat scans fall within 1 SD (+/- 0.010 g/cm2 for AP spine L1-L4) and 1 SD (+/- 0.012 g/cm2 for femur total) FRAX is a trademark of the [employer]'s [place] for Metabolic Bone Disease, a World Health Organization (WHO) Collaborating Center. Electronically signed by: Jacinto Hughes MD 04/20/2025 02:16 PM EDT
--- OUTSIDE RECORDS SUMMARY | 2025-04-20 13:54 | XMS_ITS | Clinical Summary ---
Author Organization [facility] Facility Address [address] [place] [address] Care Team Providers Care Dairy Farm Operator Name Role Phone Wilber Frank MD Primary Care Provider +1- [phone] Family History Medical History Relation Comments Diabetes [...] ars (1 of 1 - PCV) 1997 Influenza Vaccine (#1) 2025 Hepatitis B Vaccine Aged Out No longe r eligible based on patient's age to complete this topic Insurance [facility] Care Dual SNP ([id number]) [place] [id number] [facility] One Care Dual SNP ([id number]) [place] [id number] Care Teams Dairy Farm Operator Relationship Specialty Start Date End Date Wilber Frank MD 1959 [facility] [address] [place] [address] PCP - General 09/25/20
--- OUTSIDE RECORDS SUMMARY | 2025-04-20 13:54 | XMS_ITS | Clinical Summary ---
Author Organization [facility] it Address [address] [place] [address] Care Team Providers Care Bull Bucker Name Role Phone Unavailable Primary Care Provider [...] nts (1 - 1-dose 75+ series) 2022 Falls Risk Assessment 08/18/2022 Hepatitis C Screening 08/18/2022 Osteoporosis Screening (Bone Density Screening) 08/18/2022 Social Influencers of Health Screening 08/18/2022 COVID-19 Vaccine ( - 2023-2 5 season) 2024 Depression Screening 09/15/2024 Influenza Vaccine (#1) 2025 HIB Vaccines Aged Out No longer eligi [...]
== END 2025-04-20 13:24 | disposition home or self-care (01) ==
LOC: HO.MAMMO 13:23
PROVIDERS: PCP Internal Medicine; Visit Provider Nurse Practitioner Adult Health
DX: Z12.31 Encounter for screening mammogram for malignant neoplasm of breast (principal); M81.0 Age-related osteoporosis without current pathological fracture
CPT/HCPCS: 77063; 77067; 77080

== ENCOUNTER → 2025-04-20 13:30 | Outpatient (BNV) | payer OTHER, SELFPAY | PROVIDERS: PCP Internal Medicine; Visit Provider Radiology Diagnostic Radiology | DX: E28.39 Other primary ovarian failure (principal) | CPT/HCPCS: 77080 ==

== ENCOUNTER 2025-04-21 15:17 | Outpatient (AMB) | payer OTHER, SELFPAY ==
--- OUTSIDE RECORDS SUMMARY | 2025-04-21 15:20 | XMS_ITS | Clinical Summary ---
Author Organization [facility] Facility Address [address] [place] [address] Care Team Providers Care Mapping Editor Name Role Phone Wilber Frank MD Primary Care Provider +1- [phone] Family History Medical History Relation Comments Diabetes [...] patient's age to complete this topic Insurance [facility] Care Dual SNP ([id number]) [place] [id number] [facility] One Care Dual SNP ([id number]) [place] [id number] Care Teams Mapping Editor Relationship Specialty Start Date End Date Wilber Frank MD 1959 [facility] [address] [place] [address] PCP - General 09/25/20
--- OUTSIDE RECORDS SUMMARY | 2025-04-21 15:20 | XMS_ITS | Clinical Summary ---
Author Organization [facility] it Address [address] [place] [address] Care Team Providers Care Frozen Food Department Manager Name Role Phone Unavailable Primary Care Provider [...]
[2025-04-21 15:57] VITALS: BP 100/62; PULSE 50; TEMP 36.3; O2SAT 95; BMI 29.0
--- NOTE | 2025-04-21 15:57 | MHC.PC.OV ---
Vital Signs 04/21/25 15:57 Height 5 ft 6 in Weight 180 lb BMI 29.0 BP 100/62 Blood Pressure Location Rt brachial Position Sitting Pulse 50 Pulse Source Pulse Oximeter Temp 97.3 F Temp Source Oral Pulse Oximetry (%) 95 Oxygen Delivery Method Room Air Intake Visit Reasons: Follow-up Intake Note: Pt is here today c/o Rt thigh and back pain took a fall 3-4mo ago and thigh is still boring her Allergies amoxicillin Allergy (Unknown, Verified 04/21/25 16:08) throat swelling ibuprofen (From Advil) Allergy (Unknown, Verified 04/21/25 16:08) vomitting Penicillins Allergy (Unknown, Verified 04/21/25 16:08) throat swelling Sulfa (Sulfonamide Antibiotics) Allergy (Unknown, Verified 04/21/25 16:08) severe hives lisinopril Adverse Reaction (Unknown, Verified 04/21/25 16:08) cough sodium chloride Adverse Reaction (Unknown, Verified 04/21/25 16:08) vomiting Medication List - Last Reconciled 04/21/25 by Lori Frank MD abaloparatide (Tymlos) 80 mcg (0.04 mL) subcut DAILY [adult disposable [id number] As directed] aspirin (Adult Aspirin Regimen) 81 mg PO DAILY atorvastatin 10 mg PO DAILY clonazepam 1 mg PO BEDTIME PRN hydrochlorothiazide 25 mg PO QAM lamotrigine 100 mg PO BID levothyroxine 150 mcg PO DAILY losartan 100 mg PO DAILY metoprolol succinate ER 50 mg PO QAM paroxetine HCl 40 mg PO DAILY trazodone 200 mg PO BEDTIME Tobacco use date assessed: 04/21/25 Fall risk assessment: 1 Fall in past year Last assessed Fall Risk: 04/21/25 Dental Screening Dental Screen Date: 04/21/25 Did you have a dental visit in the last 12 months?: Yes Did you have a dental problem in the last 6 months where you did not have access to dental care?: Yes Was dental information given to patient?: Patient has dentist HPI HPI Comments History of Present Illness Details - The patient is a 80-year-old female presenting with a follow-up - Osteoporosis: Currently being [place] [facility] [place] [facility], currently on Tymlos, with recent bone density scans showing a 14.9% increase in bone density and a 35% increase in the neck of the femur. - Agitation: Prescribed lamotrigine for agitation due to obsessive thoughts about a neighbor entering her house. Complains of dry mouth likely a side effect medication -had a fall proximally 3-4 months ago and still complaining of intermittent pain on right thigh and lower back. Denies any accompanying numbness weakness or urinary or stool incontinence - Hypertension: Blood pressure recorded at 100/62 mmHg, lower than previous 120/76 mmHg. - Hyperlipidemia: On atorvastatin, last cholesterol check two years ago. - Hypothyroidism: On thyroid medication, last thyroid function check two years ago. [facility] Medical History Urinary tract infection symptoms Unsteady gait when walking Tremor of both outstretched hands Hypercalcemia Elevated serum creatinine Alzheimer's dementia Essential hypertension Hearing impairment Displaced fracture of right femoral neck Lumbar stenosis Mild cognitive impairment with memory loss Complex partial seizure Breast cancer screening by mammogram Postmenopause Breast cancer screening by mammogram Bipolar disorder Memory difficulties Acquired hypothyroidism Osteoporosis Dyslipidemia Recurrent falls Pain of right lateral upper thigh Surgical History History of right hip hemiarthroplasty Tongue lesion History of hip surgery History of dental surgery Family History Father Lung cancer Smoker Substance use disorder Mother HTN (hypertension) Diabetes mellitus CVD (cardiovascular disease) Substance use disorder Breast cancer Brother Schizophrenia Sister Depression Sister Substance use disorder Sister No problems noted. Sister No problems noted. Daughter No problems noted. Brother Substance use disorder Brother Mental health disorder Social History Housing: House Patient Tobacco Use Status: Former Tobacco user Years Smoked: 28 yrs e-Cigarette/Vaping Use: Never Used service: No Current occupational status: disabled Cognitive needs: No Hearing needs: No Vision needs: Yes Questionnaire PHQ-9 Over the last 2 weeks, how often have you been bothered by any of the following problems? 1. Little interest or pleasure in doing things: more than half the days 2. Feeling down, depressed, or hopeless: not at all 3. Trouble falling or staying asleep, or sleeping too much: not at all 4. Feeling tired or having little energy: several days 5. Poor appetite or overeating: more than half the days 6. Feeling bad about yourself - or that you are a failure or have let yourself or your family down: more than half the days 7. Trouble concentrating on things, such as reading the newspaper or watching television: not at all 8. Moving or speaking so slowly that other people could have noticed. Or the opposite - being so fidgety or restless that you have been moving around a lot more than usual: several days 9. Thoughts that you would be better off or of hurting yourself in some way: not at all Total score: 8 Source: Developed by Drs. Jacinto Burrows, Genesis Hubbard, David Clements and colleagues, with an educational akash from [employer]. Thrive Questionnaire Date Thrive assessed: 03/10/24 I am a: Patient What is your living situation today?: I have a steady place to live Within the past 12 months, did the food you bought not last and you didn't have the money to get more?: Never true Within the past 12 months, did you worry whether your food would run out before you got money to buy more?: Never true Do you have trouble paying for medicines?: No Do you have trouble getting transportation to medical appointments?: No Do you have trouble paying your heating and electricity bill?: No Do you have trouble taking care of your child, family member or friend?: No Do you have trouble with day-to-day activities such as bathing, preparing meals, shopping, managing finances, etc.?: No Are you currently unemployed and looking for a job?: No Are you interested in more education?: No Please select the resources that you would like help with: None Currently or been in a relationship where the following occur: No concerns reported THRIVE Score: 0 AUDIT C Alcohol Use Questionnaire (AUDIT-C) 1. How often do you have a drink containing alcohol?: Never Total Score: 0 DRE-7 AMB Questionnaire DRE-7 Date DRE - 7 assessed: 03/10/24 Feeling nervous, anxious, or on edge: 1 = Several days Not being able to stop or control worryin = Not at all Worrying too much about different things: 2 = More than half the days Trouble relaxin = More than half the days Being so restless that it is hard to sit still: 0 = Not at all Becoming easily annoyed or irritable: 0 = Not at all Feeling afraid as if something awful might happen: 0 = Not at all Total DRE-7 score (0-4 normal; 5-9 mild; 10-14 moderate; 15-21 severe): 5 Source: Developed by Drs. Jacinto Burrows, Genesis Hubbard, David Clements and colleagues, with an educational akash from [employer]. Review of Systems Const Denies fatigue, Denies fever(s), Denies headache(s), Denies malaise, Denies weakness and Reports other (Part of the history obtained also from daughter who is accompanying patient) Eyes Reports no additional complaints ENT Denies vertigo, Denies dizziness, Denies headache(s) and Reports hearing loss Card Denies chest pain, Denies rapid heart rate, Denies irregular heart rhythm, Denies palpitations and Denies dyspnea Resp Denies cough and Denies dyspnea GI Reports no additional complaints Reports no additional complaints Musc Reports abnormal gait (Uses a cane), Reports back pain (Lower back), Denies myalgias, Reports arthralgias (Right hip), Denies joint swelling, Reports numbness (Toes in her feet) and Reports stiffness Neuro Reports abnormal gait (Uses a cane), Denies vertigo, Denies dizziness, Denies headache(s), Reports memory loss, Reports numbness (Toes in her feet), Denies seizure-like activity and Denies weakness Psych Reports as per HPI (Followed by Dr. Manrique and gets regular counseling) and Reports memory loss Endo Reports no additional complaints, Denies fatigue and Denies palpitations Trung/Lymph Reports no additional complaints Aller/Immun Reports no additional complaints Physical exam (Primary Care) Vital Signs: Last Vital Signs Temp 97.3 F 04/21/25 15:57 Pulse 50 04/21/25 15:57 BP 100/62 04/21/25 15:57 Pulse Ox 95 04/21/25 15:57 Oxygen Delivery Method Room Air 04/21/25 15:57 BMI result Body Mass Index 29.0 Tobacco/Smoking Status: Tobacco use Status Tobacco use date assessed 04/21/25 04/21/25 16:04 Patient Tobacco Use Status Former Tobacco user 04/21/25 16:04 e-Cigarette/Vaping Use Never Used 04/21/25 16:04 PHQ-9: PHQ-9 Score PHQ-9: Total score 8 04/21/25 16:20 Thrive Assessment: Date of Thrive Assessment Date Thrive assessed 03/10/24 04/21/25 16:04 Currently or been in a relationship where the following occur: No concerns reported Const General: comfortable, no acute distress and alert Orientation/consciousness: patient oriented x3 HENMT Ears: external ears normal General nose exam: Normal external nose present Mouth: Normal oral and palatal mucosa present and moist mucous membranes Eyes General: appearance normal, both eyes and all related structures Pupils: Equal, round and reactive pupils present Neck Neck: Yes full ROM, Yes no lymphadenopathy and Yes supple Resp Effort & Inspection: normal respiratory effort and able to speak in complete sentences Auscultation: clear to auscultation bilaterally Cardio Rate: regular rate Rhythm: regular rhythm Heart sounds: S1 normal heart sound present and S2 normal heart sound present GI Palpation (GI): Soft to palpation, nontender and no masses Auscultation: normal bowel sounds Back/Spine/Pelvis Back: No back tenderness Skin General skin exam: no rashes or lesions noted Neuro General: patient oriented x3, gait normal, tone normal, moves all extremities, Normal light touch and pain sensation and no focal motor deficits Cranial nerves: Yes CN's II-XII intact bilaterally and Yes Equal, round and reactive pupils present Cognition (Neuro): normal cognition Extrem General: Yes full ROM, Yes no joint enlargement, Yes no clubbing, cyanosis or edema and Yes no calf tenderness Psych Appearance: grossly normal and well kempt Mental Status: mental status grossly normal Speech and movement: Normal speech and movement present Affect: normal affect Attitude: cooperative Coding Level of Care Code Est Pt Level 4 (98679) Complex EM visit Add On G2211 Diagnoses Dyslipidemia E78.5 Age-related osteoporosis without current pathological fracture M81.0 Osteoporosis type: age-related Presence of current pathological fracture: without current pathological fracture Acquired hypothyroidism E03.9 Essential hypertension I10 Assessment & Plan Assessment & Plan (1) Dyslipidemia: Code(s): E78.5 - Hyperlipidemia, unspecified Category: Medical (2) Osteoporosis: Code(s): M81.0 - Age-related osteoporosis without current pathological fracture Category: Medical Qualifiers: Osteoporosis type: age-related Presence of current pathological fracture: without current pathological fracture Qualified Code(s): M81.0 - Age-related osteoporosis without current pathological fracture (3) Acquired hypothyroidism: Code(s): E03.9 - Hypothyroidism, unspecified Category: Medical (4) Essential hypertension: Code(s): I10 - Essential (primary) hypertension Category: Medical Plan The patient is followed by endocrine clinic and placed on Tymlos for osteoporosis, with follow-up bone density scans planned to monitor improvements. Lamotrigine will be maintained for agitation, with any concerns to be discussed with her psychiatrist. For dry mouth, regular water intake is recommended to manage symptoms. Arthritis management will focus on pain relief strategies. Blood pressure will be monitored due to recent low readings, and dietary changes are advised to manage weight and cholesterol. Continued on current dose of levothyroxine, Routine blood work is scheduled, requiring fasting. Fall precautions discussed with daughter Patient was informed and verbally consented to the use of an ambient scribe for clinic note documentation during this visit. Orders: Orders Basic Metabolic Panel Fasting 04/21/25 E03.9 - Hypothyroidism, unspecified, E78.5 - Hyperlipidemia, unspecified, I10 - Essential (primary) hypertension, M81.0 - Age-related osteoporosis without current pathological fracture Alanine Aminotransferase 04/21/25 E0.9 - Hypothyroidism, unspecified, E78.5 - Hyperlipidemia, unspecified, I10 - Essential (primary) hypertension, M81.0 - Age-related osteoporosis without current pathological fracture Vitamin D 25-OH Total 04/21/25 E03.9 - Hypothyroidism, unspecified, E78.5 - Hyperlipidemia, unspecified, I10 - Essential (primary) hypertension, M81.0 - Age-related osteoporosis without current pathological fracture Lipid Panel 04/21/25 E0.9 - Hypothyroidism, unspecified, E78.5 - Hyperlipidemia, unspecified, I10 - Essential (primary) hypertension, M81.0 - Age-related osteoporosis without current pathological fracture Thyroid Stimulating Hormone 04/21/25 E0.9 - Hypothyroidism, unspecified, E78.5 - Hyperlipidemia, unspecified, I10 - Essential (primary) hypertension, M81.0 - Age-related osteoporosis without current pathological fracture Free T4 (Free Thyroxine) 04/21/25 E03.9 - Hypothyroidism, unspecified, E78.5 - Hyperlipidemia, unspecified, I10 - Essential (primary) hypertension, M81.0 - Age-related osteoporosis without current pathological fracture Aspartate Amino Transferase 04/21/25 E03.9 - Hypothyroidism, unspecified, E78.5 - Hyperlipidemia, unspecified, I10 - Essential (primary) hypertension, M81.0 - Age-related osteoporosis without current pathological fracture
== END 2025-04-21 16:21 | disposition home or self-care (01) ==
LOC: HO.HMCC 15:18
PROVIDERS: PCP Internal Medicine; Visit Provider Internal Medicine
DX: E78.5 Hyperlipidemia, unspecified (principal); M81.0 Age-related osteoporosis without current pathological fracture; E03.9 Hypothyroidism, unspecified; I10 Essential (primary) hypertension

== ENCOUNTER → 2025-04-21 15:17 | Outpatient (BNVA) | payer OTHER, SELFPAY | PROVIDERS: PCP Internal Medicine; Visit Provider Internal Medicine | DX: M81.0 Age-related osteoporosis without current pathological fracture (principal); R45.1 Restlessness and agitation; I10 Essential (primary) hypertension; E78.5 Hyperlipidemia, unspecified; E03.9 Hypothyroidism, unspecified; Z91.81 History of falling; Z79.899 Other long term (current) drug therapy | CPT/HCPCS: 96127; 99212 ==

== ENCOUNTER 2025-05-21 11:02 | Outpatient (REF) | payer OTHER, SELFPAY ==
--- OUTSIDE RECORDS SUMMARY | 2025-05-21 11:06 | XMS_ITS | Clinical Summary ---
Author Organization [facility] Facility Address [address] [place] [id number] Care Team Providers Care Production Team Advisor Name Role Phone Wilber Frank MD Primary Care Provider [phone] Family History Medical History Relation Comments Diabetes [...] patient's age to complete this topic Insurance [facility] Dual SNP ([id number]) [place] [id number] [facility] [employer] Dual SNP ([id number]) [place] [id number] Care Teams Production Team Advisor Relationship Specialty Start Date End Date Wilber Frank MD 1959 [facility] [place] [id number] PCP - General 09/25/20
--- OUTSIDE RECORDS SUMMARY | 2025-05-21 11:06 | XMS_ITS | Clinical Summary ---
Author Organization [facility] it Address [address] [place] [address] Care Team Providers Care Box Blank Machine Feeder Name Role Phone Unavailable Primary Care Provider [...] 08/18/2022 Social Influencers of Health Screening 08/18/2022 Depression Screening 09/15/2024 COVID-19 Vaccine ( - 2023-2 5 season) 2025 Influenza Vaccine (#1) 2025 HIB Vaccines Aged [...]
[2025-05-21 14:15] LABS: Alanine Aminotransferase 47 U/L (0-31); Anion Gap 14 (12-20); Aspartate Amino Transferase 39 U/L (5-31); Blood Urea Nitrogen 16 mg/dL (9-16); Calcium 9.4 mg/dL (8.4-10.2); Carbon Dioxide 24 mmol/L (22-29); Chloride 108 mmol/L (96-108); Cholesterol 182 mg/dL (<200); Estimated Glomerular Filt Rate 31; HDL Cholesterol 44 mg/dL (>40); Potassium 3.8 mmol/L (3.3-5.1); Sodium 142 mmol/L (135-145); Triglycerides 163 mg/dL (<150)
[2025-05-21 14:33] LABS: Free T4 (Free Thyroxine) 0.81 ng/dL (0.71-1.85); Thyroid Stimulating Hormone > 100.00 uIU/mL (0.32-4.0)
== END 2025-05-21 11:03 | disposition home or self-care (01) ==
LOC: HO.HMGCLDS 11:02
PROVIDERS: PCP Internal Medicine; Visit Provider Internal Medicine
DX: I10 Essential (primary) hypertension (principal); M81.0 Age-related osteoporosis without current pathological fracture; E78.5 Hyperlipidemia, unspecified; E03.9 Hypothyroidism, unspecified
CPT/HCPCS: 36415; 80048; 80061; 82306; 84439; 84443; 84450; 84460

== ENCOUNTER 2025-05-25 08:18 | Outpatient (AMB) | payer OTHER, SELFPAY ==
--- NOTE | 2025-05-25 08:36 | A.OFFPC_ITS ---
Vital Signs 05/25/25 08:37 Height 5 ft 6 in Weight 182 lb BMI 29.4 BP 136/90 H Blood Pressure Location Lt brachial Position Sitting Respiration 16 Pulse 54 Pulse Source Pulse Oximeter Temp 98.5 F Temp Source Oral Pulse Oximetry (%) 95 Oxygen Delivery Method Room Air Intake Visit Reasons: fup after labs done Truss Maker: Present Allergies amoxicillin Allergy (Unknown, Verified 05/25/25 08:56) throat swelling ibuprofen (From Advil) Allergy (Unknown, Verified 05/25/25 08:56) vomitting Penicillins Allergy (Unknown, Verified 05/25/25 08:56) throat swelling Sulfa (Sulfonamide Antibiotics) Allergy (Unknown, Verified 05/25/25 08:56) severe hives lisinopril Adverse Reaction (Unknown, Verified 05/25/25 08:56) cough sodium chloride Adverse Reaction (Unknown, Verified 05/25/25 08:56) vomiting Medication List - Last Reconciled 05/25/25 by Lori Frank MD abaloparatide (Tymlos) 80 mcg (0.04 mL) subcut DAILY [adult disposable suxqaj-Lxnv-nvw As directed] aspirin (Adult Aspirin Regimen) 81 mg PO DAILY atorvastatin 10 mg PO DAILY clonazepam 1 mg PO BEDTIME PRN hydrochlorothiazide 25 mg PO QAM lamotrigine 100 mg PO BID levothyroxine 150 mcg PO DAILY losartan 100 mg PO DAILY metoprolol succinate ER 50 mg PO QAM paroxetine HCl 40 mg PO DAILY trazodone 200 mg PO BEDTIME Tobacco use date assessed: 05/25/25 Fall risk assessment: 2 + Falls in past year Last assessed Fall Risk: 05/25/25 Dental Screening Dental Screen Date: 04/21/25 HPI fup after labs done HPI Details - The patient is a 80-year-old female pr esenting today for follow-up on her hypothyroidism - Hypothyroidism: The patient was previo usly on 150 mcg of levothyroxine, which was reduced to 100 mcg due to suppression of thyroid hormone levels. However, recent labs indicate showed higher TSH levels. - The patient reports symptoms of fatigu e and diarrhea, The levothyroxine dose is being adjusted to 175 mcg to address these issues. - Tremors: The patient reports worsening tremors, which she associates with a family history of Parkinson's disease. She has an upcoming appointment with a neurologist for further evaluation. - The patient uses a cane for mobility a nd reports numbness in her toes, which contributes to balance issues and falls. - Osteoporosis: The patient is under the care of Dr. Means for osteoporosis management. She is on Tymlos and has had a recent bone density test showing persistent osteoporosis despite treatment. - Anxiety: The patient was previously on Vraylar for anxiety and panic attacks but discontinued due to difficulty in obtaining refills. Daughter however reports improvement in symptoms after implementing home security measures, such as changing blocks in her towards. - Preventative care: The patient is due for flu, COVID-19 booster, and shingles vaccinations. She is advised to receive these vaccinations separately to monitor for adverse reactions. [facility] Medical History Urinary tract infection symptoms Unsteady gait when walking Tremor of both outstretched hands Hypercalcemia Elevated serum creatinine Alzheimer's dementia Essential hypertension Hearing impairment Displaced fracture of right femoral neck Lumbar stenosis Mild cognitive impairment with memory loss Complex partial seizure Breast cancer screening by mammogram Postmenopause Breast cancer screening by mammogram Bipolar disorder Memory difficulties Acquired hypothyroidism Osteoporosis Dyslipidemia Recurrent falls Pain of right lateral upper thigh Surgical History History of right hip hemiarthroplasty Tongue lesion History of hip surgery History of dental surgery Family History Father Lung cancer Smoker Substance use disorder Mother HTN (hypertension) Diabetes mellitus CVD (cardiovascular disease) Substance use disorder Breast cancer Brother Schizophrenia Sister Depression Sister Substance use disorder Sister No problems noted. Sister No problems noted. Daughter No problems noted. Brother Substance use disorder Brother Mental health disorder Social History Housing: House Patient Tobacco Use Status: Former Tobacco user Years Smoked: 28 yrs e-Cigarette/Vaping Use: Never Used service: No Current occupational status: disabled Cognitive needs: No Hearing needs: No Vision needs: Yes Questionnaire PHQ-9 Over the last 2 weeks, how often have you been bothered by any of the following problems? 1. Little interest or pleasure in doing things: not at all 2. Feeling down, depressed, or hopeless: not at all 3. Trouble falling or staying asleep, or sleeping too much: not at all 4. Feeling tired or having little energy: not at all 5. Poor appetite or overeating: not at all 6. Feeling bad about yourself - or that you are a failure or have let yourself or your family down: not at all 7. Trouble concentrating on things, such as reading the newspaper or watching television: not at all 8. Moving or speaking so slowly that other people could have noticed. Or the opposite - being so fidgety or restless that you have been moving around a lot more than usual: not at all 9. Thoughts that you would be better off or of hurting yourself in some way: not at all Total score: 0 Depression Screening Interpretation: Negative Depression Screening Done: Yes 41438 - PHQ-9 Billing: Yes Source: Developed by Drs. Jacinto Burrows, Genesis Hubbard, David Clements and colleagues, with an educational akash from [employer]. Thrive Questionnaire Date Thrive assessed: 04/21/25 I am a: Patient What is your living situation today?: I have a steady place to live Within the past 12 months, did the food you bought not last and you didn't have the money to get more?: Never true Within the past 12 months, did you worry whether your food would run out before you got money to buy more?: Never true Do you have trouble paying for medicines?: No Do you have trouble getting transportation to medical appointments?: No Do you have trouble paying your heating and electricity bill?: No Do you have trouble taking care of your child, family member or friend?: No Do you have trouble with day-to-day activities such as bathing, preparing meals, shopping, managing finances, etc.?: No Are you currently unemployed and looking for a job?: No Are you interested in more education?: No Please select the resources that you would like help with: None Currently or been in a relationship where the following occur: No concerns reported THRIVE Score: 0 DRE-7 AMB Questionnaire DRE-7 Date DRE - 7 assessed: 05/25/25 Feeling nervous, anxious, or on edge: 0 = Not at all Not being able to stop or control worryin = Not at all Worrying too much about different things: 0 = Not at all Trouble relaxin = Not at all Being so restless that it is hard to sit still: 0 = Not at all Becoming easily annoyed or irritable: 0 = Not at all Feeling afraid as if something awful might happen: 0 = Not at all Total DRE-7 score (0-4 normal; 5-9 mild; 10-14 moderate; 15-21 severe): 0 Source: Developed by Drs. Jacinto Burrows, Genesis Hubbard, David Clements and colleagues, with an educational akash from [employer]. DRE-7 Assessment Billing DRE-7 Assessment Tool: DRE-7 Assessment 69844 Review of Systems Const Denies fatigue, Denies fever(s), Denies headache(s), Denies malaise, Denies weakness and Reports other (Part of the history obtained also from daughter who is accompanying patient) Eyes Reports no additional complaints ENT Denies vertigo, Denies dizziness, Denies headache(s) and Reports hearing loss Card Denies chest pain, Denies rapid heart rate, Denies irregular heart rhythm, Denies palpitations and Denies dyspnea Resp Denies cough and Denies dyspnea GI Reports no additional complaints Reports no additional complaints Musc Reports abnormal gait (Uses a cane), Reports back pain (Lower back), Denies myalgias, Reports arthralgias (Right hip), Denies joint swelling, Reports numbness (Toes in her feet) and Reports stiffness Neuro Reports abnormal gait (Uses a cane), Denies vertigo, Denies dizziness, Denies headache(s), Reports memory loss, Reports numbness (Toes in her feet), Denies seizure-like activity and Denies weakness Psych Reports as per HPI (Followed by Dr. Manrique and gets regular counseling) and Reports memory loss Endo Reports no additional complaints, Denies fatigue and Denies palpitations Trung/Lymph Reports no additional complaints Aller/Immun Reports no additional complaints Physical exam (Primary Care) Vital Signs: Last Vital Signs Temp 98.5 F 05/25/25 08:37 Pulse 54 05/25/25 08:37 Resp 16 05/25/25 08:37 BP 136/90 H 05/25/25 08:37 Pulse Ox 95 05/25/25 08:37 Oxygen Delivery Method Room Air 05/25/25 08:37 BMI result Body Mass Index 29.4 Tobacco/Smoking Status: Tobacco use Status Tobacco use date assessed 05/25/25 05/25/25 08:42 Patient Tobacco Use Status Former Tobacco user 05/25/25 08:36 e-Cigarette/Vaping Use Never Used 05/25/25 08:36 PHQ-9: PHQ-9 Score PHQ-9: Total score 0 05/25/25 08:57 Depression Screening Interpretation: Negative Thrive Assessment: Date of Thrive Assessment Date Thrive assessed 04/21/25 05/25/25 08:36 Currently or been in a relationship where the following occur: No concerns reported Const General: comfortable, no acute distress and alert Orientation/consciousness: patient oriented x3 HENMT Ears: external ears normal General nose exam: Normal external nose present Mouth: Normal oral and palatal mucosa present and moist mucous membranes Eyes General: appearance normal, both eyes and all related structures Pupils: Equal, round and reactive pupils present Neck Neck: Yes full ROM, Yes no lymphadenopathy and Yes supple Resp Effort & Inspection: normal respiratory effort and able to speak in complete sentences Auscultation: clear to auscultation bilaterally Cardio Rate: regular rate Rhythm: regular rhythm Heart sounds: S1 normal heart sound present and S2 normal heart sound present GI Palpation (GI): Soft to palpation, nontender and no masses Auscultation: normal bowel sounds Back/Spine/Pelvis Back: No back tenderness Skin General skin exam: no rashes or lesions noted Neuro Other: Mild tremors in hands noted bilateral General: patient oriented x3, gait normal, tone normal, moves all extremities, Normal light touch and pain sensation and no focal motor deficits Cranial nerves: Yes CN's II-XII intact bilaterally and Yes Equal, round and reactive pupils present Cognition (Neuro): normal cognition Extrem General: Yes full ROM, Yes no joint enlargement, Yes no clubbing, cyanosis or edema and Yes no calf tenderness Psych Appearance: grossly normal and well kempt Mental Status: mental status grossly normal Speech and movement: Normal speech and movement present Affect: normal affect Attitude: cooperative Results Reviewed Results Reviewed: Name: Zachary Stanley Age/Sex: 80/F : 1945 Unit#: [id number] Attend Dr: Lori Frank MD Re05/21/25 Status: DEP REF Location: [facility] Disch: SPEC : [id number] ANTONIO: 05/21/25 STATUS: COMP REQ : [id number] RECD: 05/21/25-[address]: Lori Frank MD COMP: 05/21/25-1432 ENTERED: 05/21/25-[address]: ORDERED: Met Prof Fast, AST, ALT, Lipid Panel, Vitamin D 25-OH, Free T4, TSH Test Result Flag Reference Sodium 142 135-145 mmol/L Potassium 3.8 3.3-5.1 mmol/L CL 108 96-108 mmol/L CO2 24 22-29 mmol/L Gap 14 12-20 BUN 16 9-16 mg/dL Creat 1.60 H 0.5-1.4 mg/dL eGFR 31 Chronic Kidney Disease: Estimated GFR < 60 mL/min/1.73 m2 Severe Kidney Disease: Estimated GFR < 15 mL/min/1.73m2 FBS 90 60-99 mg/dL CA 9.4 8.4-10.2 mg/dL AST (GOT) 39 H 5-31 U/L ALT (GPT) 47 H 0-31 U/L Triglyceride 163 H <150 mg/dL Desirable Triglyceride: less than 150 mg/dL Borderline High Triglyceride 150-199 mg/dL High Triglyceride: 200-499 mg/dL Very High Triglyceride: greater than or equal to 5OO mg/dL Cholesterol 182 <200 mg/dL Desirable Cholesterol: less than 200 mg/dL Borderline High Cholesterol: 200-239 mg/dL High Cholesterol: greater than 239 mg/dL LDL Calculated 106 H <100 mg/dL Desirable LDL: less than 100 mg/dL Near Optimal/Above Optimal LDL: 110-129 mg/dL Borderline High LDL: 130-159 mg/dL High LDL: 160-189 mg/dL Very High LDL: greater than or equal to 190 mg/dL HDL 44 >40 mg/dL Desirable HDL: greater than 40 mg/dL Note: This HDL assay may give artificially low results in patients with liver disease. Vitamin D 25-OH 45.7 >30 ng/mL Health Based Reference Values* < 20 ng/mL Deficient 20-30 ng/mL Insufficient > 30 ng/mL Sufficient *Chloe PARRISH. N Engl J Med. 2007;357:266-280 There is no well-established upper level of normal vitamin D levels. Some laboratories use 50 ng/mL as an upper limit of normal. However, toxicity is patient-dependent and may occur at any level. Careful correlation with the patient's presentation is necessary and, if there is concern for vitamin D toxicity, treatment should be considered irrespective of the serum level. Care must be taken in interpreting Vitamin D results from different laboratories and methodologies. Published data demonstrated that results from patients undergoing hemodialysis may show a negative bias when tested with various automated 25-OH vitamin D assays when compared to LC-MS/MS. When testing samples from patients whose predominant form of Vitamin D is Vitamin D2, such as patients receiving Vit schultz D2 supplementation, results that are subtherapeutic should be confirmed with another method such as LC-MS/MS. Free T4 0.81 0.71-1.85 ng/dL TSH 3rd Gen. > 100.00 H 0.32-4.0 uIU/mL Note: A sustained TSH level above 2.5 uIU/mL may warrant further investigation. TSH 3rd Generation ([facility]) Coding Level of Care Code Est Pt Level 4 (34062) Complex EM visit Add On G2211 Diagnoses Essential hypertension I10 Dyslipidemia E78.5 Acquired hypothyroidism E03.9 Additional Codes DRE-7 Assessment Billing - DRE-7 Assessment Tool: DRE-7 Assessment 26775 ([id number]) PHQ-9 - 18841 - PHQ-9 Billing: Yes ([id number]) Assessment & Plan Assessment & Plan (1) Essential hypertension: Code(s): I10 - Essential (primary) hypertension Category: Medical Plan: Continue with metoprolol succinate ER 50 mg in the morning and hydrochlorothiazide 25 mg in the morning Reinforced importance of following a low sodium diet, getting regular exercise, and lowering stress levels. (2) Dyslipidemia: Code(s): E78.5 - Hyperlipidemia, unspecified Category: Medical Plan: Reviewed recent fasting lipid profile with patient with levels slightly elevated compared to last check . Continue atorvastatin 10 mg daily , in addition to adherence to low-cholesterol diet and regular exercise, at least 30 minutes 3 to 4 times a week. Advised patient to make healthy food choices, eat more fruits, vegetables, whole grains, wild caught fish and low-fat dairy. Limit amount of meat and fried or fatty food products, as well as processed foods and fast foods. (3) Acquired hypothyroidism: Code(s): E03.9 - Hypothyroidism, unspecified Category: Medical Plan: Reviewed recent thyroid levels with markedly elevated TSH , increase levothyroxine dose to 175 mcg daily in a.m. and take an hour before breakfast and before taking medications. Recheck another thyroid level in July 2025 Orders: Orders Triiodothyronine T3 Free 07/23/25 E03.9 - Hypothyroidism, unspecified Thyroid Stimulating Hormone 07/23/25 E03.9 - Hypothyroidism, unspecified Free T4 (Free Thyroxine) 07/23/25 E03.9 - Hypothyroidism, unspecified Thyroid Peroxidase Antibodies 07/23/25 E03.9 - Hypothyroidism, unspecified Medications: New levothyroxine (Levoxyl) Take tablet 1st thing in the morning with a glass of water, an hour before any medications or food 175 mcg PO DAILY 90 tabs 0RF Discontinued levothyroxine Discontinued Reason: Doctor's Order 150 mcg PO DAILY 90 tabs 5RF
[2025-05-25 08:37] VITALS: BP 136/90; PULSE 54; RESP 16; TEMP 36.9; O2SAT 95; BMI 29.4
--- OUTSIDE RECORDS SUMMARY | 2025-05-25 09:29 | XMS_ITS | Clinical Summary ---
Author Organization [facility] it Address [address] [place] [address] Care Team Providers Care Boat Designer Name Role Phone Unavailable Primary Care Provider [...]
--- OUTSIDE RECORDS SUMMARY | 2025-05-25 09:29 | XMS_ITS | Clinical Summary ---
Author Organization [facility] Facility Address [address] [place] [address] Care Team Providers Care Front End Developer Name Role Phone Wilber Frank MD Primary Care Provider [phone] Family History Medical History Relation Comments Diabetes [...] patient's age to complete this topic Insurance [facility] Care Dual SNP ([id number]) [place] [id number] [employer] One Care Dual SNP ([id number]) [place] [id number] Care Teams Front End Developer Relationship Specialty Start Date End Date Wilber Frank MD 1959 [facility] [place] [address] PCP - General 09/25/20
== END 2025-05-25 16:02 | disposition home or self-care (01) ==
LOC: HO.HMCC 08:19
PROVIDERS: PCP Internal Medicine; Visit Provider Internal Medicine
DX: I10 Essential (primary) hypertension (principal); E78.5 Hyperlipidemia, unspecified; E03.9 Hypothyroidism, unspecified

== ENCOUNTER → 2025-05-25 08:18 | Outpatient (BNVA) | payer OTHER, SELFPAY | PROVIDERS: PCP Internal Medicine; Visit Provider Internal Medicine | DX: I10 Essential (primary) hypertension (principal); E78.5 Hyperlipidemia, unspecified; E03.9 Hypothyroidism, unspecified; Z79.899 Other long term (current) drug therapy; Z13.31 Encounter for screening for depression; Z13.39 Encounter for screening examination for other mental health and behavioral disorders | CPT/HCPCS: 96127; 99212 ==

== ENCOUNTER 2025-06-29 14:29 | Outpatient (AMB) | payer OTHER, SELFPAY ==
--- NOTE | 2025-06-29 14:32 | MHC.OFFVIS ---
Vital Signs 06/29/25 14:36 Height 5 ft 7.17 in Weight 177 lb 7.554 oz BMI 27.7 BP 130/64 Blood Pressure Location Rt brachial Position Sitting Pulse 64 Pulse Source Pulse Oximeter Pulse Oximetry (%) 95 Oxygen Delivery Method Room Air Intake Visit Reasons: Osteoporosis Intake Note: Patient present today for Osteoporosis follow up. Accompanied by: Daughter Allergies amoxicillin Allergy (Unknown, Verified 06/29/25 14:38) throat swelling ibuprofen (From Advil) Allergy (Unknown, Verified 06/29/25 14:38) vomitting Penicillins Allergy (Unknown, Verified 06/29/25 14:38) throat swelling Sulfa (Sulfonamide Antibiotics) Allergy (Unknown, Verified 06/29/25 14:38) severe hives lisinopril Adverse Reaction (Unknown, Verified 06/29/25 14:38) cough sodium chloride Adverse Reaction (Unknown, Verified 06/29/25 14:38) vomiting Medication List - Last Reconciled 06/29/25 by Jacinto Means MD abaloparatide (Tymlos) 80 mcg (0.04 mL) subcut DAILY [adult disposable akiyiu-Rmwe-ysy As directed] aspirin (Adult Aspirin Regimen) 81 mg PO DAILY atorvastatin 10 mg PO DAILY clonazepam 1 mg PO BEDTIME PRN [disposable bed pads Use As directed] hydrochlorothiazide 25 mg PO QAM lamotrigine 100 mg PO BID levothyroxine (Levoxyl) 175 mcg PO DAILY losartan 100 mg PO DAILY metoprolol succinate ER 50 mg PO QAM paroxetine HCl 40 mg PO DAILY pen needle, diabetic (Easy Comfort [place]) As directed injects once a day trazodone 200 mg PO BEDTIME HPI Comments Details: 79 YO [Female] with is seen in consultation at the request of PCP for Osteoporosis. 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 . Received treatment in the past with alendronate ,unclear how long . Not sure why stopped . History of pathologic fracture R hip in 2017 and pelvis fx 2 yrs ago Not taking servings of dietary calcium per day Not Takes Calcium supplement . Takes MVI with IU of Vitamin D daily. Denies ever using PPI, anticoagulant, takes antiepileptic or glucocorticoid medication. 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 UTD on dental cleanings and sees dentist every [address] There is planned upcoming dental work but no extractions. DXA dated 09/04/2021:AP SPINE L1-L2 (excluding L3 and L4): The data of L1-L4 has been changed to exclude the L3 and L4 vertebral bodies, because degenerative changes at these levels may cause overestimation of lumbar spine density. Current: BMD 0.901 g/cm2, Z-score -1.0, T-score -2.2, osteopenia, 1.1% decrease from baseline (<5% change is not significant). Baseline: BMD 0.911 g/cm2. LEFT FEMUR, NECK: Current: BMD 0.537 g/cm2, Z-score -2.1, T-score -3.6, osteoporosis. Baseline: BMD 0.667 g/cm2. LEFT FEMUR, TOTAL: Current: BMD 0.598 g/cm2, Z-score -1.9, T-score -3.3, osteoporosis, 8.8% decrease from baseline (<5% change is not significant). Baseline: BMD 0.656 g/cm2. Labs: secondary workup was negative. , Started 12/2022 for about 3 mos then stopped.Back on Tymlos for 17 mos according to pt . Had dramatic improvements in bone density to borderline osteoporosis. No fracture since last visit [facility] Medical History Urinary tract infection symptoms Unsteady gait when walking Tremor of both outstretched hands Hypercalcemia Elevated serum creatinine Alzheimer's dementia Essential hypertension Hearing impairment Displaced fracture of right femoral neck Lumbar stenosis Mild cognitive impairment with memory loss Complex partial seizure Breast cancer screening by mammogram Postmenopause Breast cancer screening by mammogram Bipolar disorder Memory difficulties Acquired hypothyroidism Osteoporosis Dyslipidemia Recurrent falls Pain of right lateral upper thigh Surgical History History of right hip hemiarthroplasty Tongue lesion History of hip surgery History of dental surgery Family History Father Lung cancer Smoker Substance use disorder Mother HTN (hypertension) Diabetes mellitus CVD (cardiovascular disease) Substance use disorder Breast cancer Brother Schizophrenia Sister Depression Sister Substance use disorder Sister No problems noted. Sister No problems noted. Daughter No problems noted. Brother Substance use disorder Brother Mental health disorder Social History Housing: House Patient Tobacco Use Status: Former Tobacco user Years Smoked: 28 yrs e-Cigarette/Vaping Use: Never Used service: No Current occupational status: disabled Cognitive needs: No Hearing needs: No Vision needs: Yes Physical Exam Vital Signs: Last Vital Signs Pulse 64 06/29/25 14:36 BP 130/64 06/29/25 14:36 Pulse Ox 95 06/29/25 14:36 Oxygen Delivery Method Room Air 06/29/25 14:36 BMI result Body Mass Index 27.7 Assessment & Plan Assessment & Plan (1) Osteoporosis: Code(s): M81.0 - Age-related osteoporosis without current pathological fracture Category: Medical Qualifiers: Osteoporosis type: age-related Presence of current pathological fracture: without current pathological fracture Qualified Code(s): M81.0 - Age-related osteoporosis without current pathological fracture Plan: This 80-year-old white female with a history of osteoporosis and R femur fracturein 2017. Took alendronate in past. secondary workup was negative. Currently on Tymlos for the past 17 months time. Recent bone density showed lowest T-score of -2.5 Plan is to continue the Tymlos for full 18 months' course until 08/2025 . We will then transition to alendronate 70 mg Q weekly and continue for 1-2 years' time Medications: New alendronate 70 mg PO QWEEK 5 tabs 0RF Coding Level of Care Code Est Pt Level 3 (35110) Diagnoses Age-related osteoporosis without current pathological fracture M81.0 Osteoporosis type: age-related Presence of current pathological fracture: without current pathological fracture
[2025-06-29 14:36] VITALS: BP 130/64; PULSE 64; O2SAT 95; BMI 27.7
--- OUTSIDE RECORDS SUMMARY | 2025-06-29 18:13 | XMS_ITS | Clinical Summary ---
Author Organization [facility] it Address [address] [place] [address] Care Team Providers Care Automobile Service Station Attendant Name Role Phone Unavailable Primary Care Provider [...]
--- OUTSIDE RECORDS SUMMARY | 2025-06-29 18:13 | XMS_ITS | Continuity of Care Document ---
Author Name [facility], Medical Address [address] [place] [id number] Organization Unknown Address [address] [place] [address] Medications No known medications Problems No known problems
== END 2025-06-29 15:06 | disposition home or self-care (01) ==
LOC: HO.ENCR 14:30
PROVIDERS: PCP Internal Medicine; Visit Provider Internal Medicine Endocrinology, Diabetes & Metabolism
DX: M81.0 Age-related osteoporosis without current pathological fracture (principal)
CPT/HCPCS: 99213

== ENCOUNTER → 2025-06-29 14:29 | Outpatient (BNVA) | payer OTHER, SELFPAY | PROVIDERS: PCP Internal Medicine; Visit Provider Internal Medicine Endocrinology, Diabetes & Metabolism | DX: M81.0 Age-related osteoporosis without current pathological fracture (principal) | CPT/HCPCS: 99212 ==

== ENCOUNTER → 2025-07-13 23:59 | Outpatient (BNV) | payer OTHER, SELFPAY | PROVIDERS: PCP Internal Medicine; Visit Provider Internal Medicine | DX: F31.9 Bipolar disorder, unspecified (principal); I10 Essential (primary) hypertension; R26.2 Difficulty in walking, not elsewhere classified | CPT/HCPCS: G0179 ==

== ENCOUNTER 2025-07-18 14:38 | Outpatient (AMB) | payer OTHER, SELFPAY ==
--- NOTE | 2025-07-18 14:54 | MHC.OFFVIS ---
Vital Signs 07/18/25 14:55 Height 5 ft 7.17 in Weight 178 lb 2 oz BMI 27.8 BP 110/64 Blood Pressure Location Rt brachial Position Sitting Pulse 65 Pulse Source Pulse Oximeter Pulse Oximetry (%) 95 Oxygen Delivery Method Room Air Intake Visit Reasons: INP-Tremor Intake Note: Tremor of both outstretched hands Audiovisual Technician Required: No Accompanied by: Daughter Allergies amoxicillin Allergy (Unknown, Verified 07/18/25 14:55) throat swelling ibuprofen (From Advil) Allergy (Unknown, Verified 07/18/25 14:55) vomitting Penicillins Allergy (Unknown, Verified 07/18/25 14:55) throat swelling Sulfa (Sulfonamide Antibiotics) Allergy (Unknown, Verified 07/18/25 14:55) severe hives lisinopril Adverse Reaction (Unknown, Verified 07/18/25 14:55) cough sodium chloride Adverse Reaction (Unknown, Verified 07/18/25 14:55) vomiting Medication List - Last Reconciled 07/18/25 by Federica Laureano MD abaloparatide (Tymlos) 80 mcg (0.04 mL) subcut DAILY [adult disposable gemeam-Gwlr-nzm As directed] alendronate 70 mg PO QWEEK aspirin (Adult Aspirin Regimen) 81 mg PO DAILY atorvastatin 10 mg PO DAILY clonazepam 1 mg PO BEDTIME PRN [disposable bed pads Use As directed] docusate sodium (Colace) 100 mg PO DAILY hydrochlorothiazide 25 mg PO QAM lamotrigine 100 mg PO BID levothyroxine (Levoxyl) 175 mcg PO DAILY losartan 100 mg PO DAILY metoprolol succinate ER 50 mg PO QAM paroxetine HCl 40 mg PO DAILY pen needle, diabetic (Pam Pen Needle) USE DIRECTED ONCE A DAY polyethylene glycol 3350 (Miralax) 17 grams PO DAILY trazodone 200 mg PO BEDTIME HPI Comments Details: 80y/o Right handed female comes for evaluation of tremors. she is accompanied by her daughter who helps with history she has h/o Bipolar disorder- says had a breakdown at age of 49 and was in a psychiatric unit . she was treated with lithium, risperdal, haldol etc. Currently she is on lamotrigine trazadone and paroxetine. she was diagnosed with Alzheimers dementia by atleast 10 years ago - but she says she was healed when she went to the prayer group . she had 1 seizure in 2000 - on lot of psych meds. she reports postural action tremors in her hands and sometimes in legs . she also has tardive dyskinesia - mainly perioral movements which bothers her. she also has frequent falls. 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 [facility] Medical History (Updated 07/18/25 @ 15:41 by Federica Laureano MD) Tardive dyskinesia Urinary tract infection symptoms Unsteady gait when walking Tremor of both outstretched hands Hypercalcemia Elevated serum creatinine Alzheimer's dementia Essential hypertension Hearing impairment Displaced fracture of right femoral neck Lumbar stenosis Mild cognitive impairment with memory loss Complex partial seizure Breast cancer screening by mammogram Postmenopause Breast cancer screening by mammogram Bipolar disorder Memory difficulties Acquired hypothyroidism Osteoporosis Dyslipidemia Recurrent falls Pain of right lateral upper thigh Surgical History History of right hip hemiarthroplasty Tongue lesion History of hip surgery History of dental surgery Family History Father Lung cancer Smoker Substance use disorder Mother HTN (hypertension) Diabetes mellitus CVD (cardiovascular disease) Substance use disorder Breast cancer Brother Schizophrenia Sister Depression Sister Substance use disorder Sister No problems noted. Sister No problems noted. Daughter No problems noted. Brother Substance use disorder Brother Mental health disorder Social History Housing: House Patient Tobacco Use Status: Former Tobacco user Years Smoked: 28 yrs e-Cigarette/Vaping Use: Never Used service: No Current occupational status: disabled Cognitive needs: No Hearing needs: No Vision needs: Yes Physical Exam Vital Signs: Last Vital Signs Pulse 65 07/18/25 14:55 BP 110/64 07/18/25 14:55 Pulse Ox 95 07/18/25 14:55 Oxygen Delivery Method Room Air 07/18/25 14:55 BMI result Body Mass Index 27.8 Const General: cooperative, healthy appearing, comfortable and no acute distress Nutritional Appearance: average body habitus Orientation/consciousness: patient oriented x3 Eyes Pupils: Equal, round and reactive pupils present Neuro Other: head tilted to right - torticollis perioral dyskinesia , tongue movements Mild yareli tremors - postural and action gait -s low antalgic General: patient oriented x3, tone normal, moves all extremities and no focal motor deficits Cranial nerves: Yes Facial sensation intact/muscles of mastication intact, Yes Equal, round and reactive pupils present, Yes Bilaterally intact EOM present, Yes Nystagmus not present, Yes Normal facial strength present, Yes Midline tongue present, Yes Symmetric palate elevation present and Yes Ability to bilaterally elevate shoulders present Cognition (Neuro): normal cognition Gait exam (Neuro): Antalgic gait present Motor exam (neuro): 5/5 motor strength present throughout and Normal motor muscle tone present throughout Deep tendon reflexes (DTR's): Right triceps reflex intensity grade: 1+, Left triceps reflex intensity grade: 1+, Rt Biceps (C5, C6): 1+, Left biceps reflex intensity grade: 1+, Right brachioradialis reflex intensity grade: 1+, Left brachioradialis reflex intensity grade: 1+, Right patellar reflex intensity grade: 1+ and Left patellar reflex intensity grade: 1+ Coordination: [id number] test normal Assessment & Plan Assessment & Plan (1) Tremor of both outstretched hands: Comment: med related , ? tardive Code(s): R25.1 - Tremor, unspecified Category: Medical (2) Tardive dyskinesia: Code(s): G24.01 - Drug induced subacute dyskinesia Category: Medical (3) Unsteady gait when walking: Comment: likely musculoskeletal Code(s): R26.81 - Unsteadiness on feet Category: Medical Plan I will evaluate ehr with MRI brain Check her vit B 12 and homocysteine Trial on Austedo XR 6 mg qd PT for gait and balance training Orders: Orders MR head/brain wo con Today G24.01 - Drug induced subacute dyskinesia, G31.84 - Mild cognitive impairment of uncertain or unknown etiology, R25.1 - Tremor, unspecified Vitamin B12 and Folate Today G24.01 - Drug induced subacute dyskinesia, G31.84 - Mild cognitive impairment of uncertain or unknown etiology, R25.1 - Tremor, unspecified Homocysteine Today G24.01 - Drug induced subacute dyskinesia, G31.84 - Mild cognitive impairment of uncertain or unknown etiology, R25.1 - Tremor, unspecified Methylmalonic Acid Today G24.01 - Drug induced subacute dyskinesia, G31.84 - Mild cognitive impairment of uncertain or unknown etiology, R25.1 - Tremor, unspecified [facility]errals [facility] Referral R26.81 - Unsteadiness on feet, R29.6 - Repeated falls Medications: New deutetrabenazine ER (Austedo XR) 6 mg PO DAILY 30 tabs 2RF Coding Level of Care Code New Pt Level 4 (20155) Complex EM visit Add On G2211 Diagnoses Tremor of both outstretched hands R25.1 Tardive dyskinesia G24.01 Unsteady gait when walking R26.81
[2025-07-18 14:55] VITALS: BP 110/64; PULSE 65; O2SAT 95; BMI 27.8
== END 2025-07-18 15:51 | disposition home or self-care (01) ==
LOC: HO.HSMS 14:39
PROVIDERS: PCP Internal Medicine; Visit Provider Psychiatry & Neurology Neurology
DX: R25.1 Tremor, unspecified (principal); G24.01 Drug induced subacute dyskinesia; R26.81 Unsteadiness on feet
CPT/HCPCS: 99204; G2211

== ENCOUNTER → 2025-07-18 14:38 | Outpatient (BNVA) | payer OTHER, SELFPAY | PROVIDERS: PCP Internal Medicine; Visit Provider Psychiatry & Neurology Neurology | DX: G24.01 Drug induced subacute dyskinesia (principal); R26.81 Unsteadiness on feet; G31.84 Mild cognitive impairment of uncertain or unknown etiology | CPT/HCPCS: 99202 ==

== ENCOUNTER 2025-07-23 10:56 | Outpatient (REF) | payer OTHER, SELFPAY ==
--- OUTSIDE RECORDS SUMMARY | 2025-07-23 10:59 | XMS_ITS | Clinical Summary ---
Author Organization [facility] Facility Address [address] [place] [id number] Care Team Providers Care Welding Machine Assembler Name Role Phone Wilber Frank MD Primary Care Provider [phone]- [phone] Family History Medical History Relation Comments Diabetes [...] patient's age to complete this topic Insurance [facility] Care Dual SNP ([id number]) [place] [id number] [facility] One Care Dual SNP ([id number]) [place] [id number] Care Teams Welding Machine Assembler Relationship Specialty Start Date End Date Wilber Frank MD 1959 [facility] [place] [address] PCP - General 09/25/20
--- OUTSIDE RECORDS SUMMARY | 2025-07-23 10:59 | XMS_ITS | Clinical Summary ---
Author Organization [facility] it Address [address] [place] [address] Care Team Providers Care Paste Up Artist Name Role Phone Unavailable Primary Care Provider [...]
[2025-07-23 14:24] LABS: Free T4 (Free Thyroxine) 1.33 ng/dL (0.71-1.85); Thyroid Stimulating Hormone 0.05 uIU/mL (0.32-4.0)
== END 2025-07-23 10:57 | disposition home or self-care (01) ==
LOC: HO.HMGCLDS 10:56
PROVIDERS: PCP Internal Medicine; Visit Provider Internal Medicine
DX: E03.9 Hypothyroidism, unspecified (principal)
CPT/HCPCS: 36415; 84439; 84443; 84481; 86376

== ENCOUNTER 2025-08-09 08:14 | Outpatient (AMB) | payer OTHER, SELFPAY ==
[2025-08-09 08:24] VITALS: BP 90/62; PULSE 64; RESP 16; TEMP 36.6; O2SAT 95; BMI 28.3
--- NOTE | 2025-08-09 08:24 | A.OFFPC_ITS ---
Vital Signs 08/09/25 08:24 Height 5 ft 7 in Weight 181 lb BMI 28.3 BP 90/62 Blood Pressure Location Lt brachial Position Sitting Respiration 16 Pulse 64 Pulse Source Pulse Oximeter Temp 97.9 F Temp Source Oral Pulse Oximetry (%) 95 Oxygen Delivery Method Room Air Intake Visit Reasons: 2 months f/up Intake Note: Pt is here today for her 2mo. f/u Hire Car Driver Required: No Allergies amoxicillin Allergy (Unknown, Verified 08/09/25 08:54) throat swelling ibuprofen (From Advil) Allergy (Unknown, Verified 08/09/25 08:54) vomitting Penicillins Allergy (Unknown, Verified 08/09/25 08:54) throat swelling Sulfa (Sulfonamide Antibiotics) Allergy (Unknown, Verified 08/09/25 08:54) severe hives lisinopril Adverse Reaction (Unknown, Verified 08/09/25 08:54) cough sodium chloride Adverse Reaction (Unknown, Verified 08/09/25 08:54) vomiting Medication List - Last Reconciled 08/09/25 by Lori Frank MD abaloparatide (Tymlos) 80 mcg (0.04 mL) subcut DAILY [adult disposable vhjers-Jucr-lxw As directed] alendronate 70 mg PO QWEEK aspirin (Adult Aspirin Regimen) 81 mg PO DAILY atorvastatin 10 mg PO DAILY clonazepam 1 mg PO BEDTIME PRN deutetrabenazine ER (Austedo XR) 6 mg PO DAILY [disposable bed pads Use As directed] docusate sodium (Colace) 100 mg PO DAILY hydrochlorothiazide 25 mg PO QAM lamotrigine 100 mg PO BID levothyroxine (Levoxyl) 175 mcg PO DAILY losartan 100 mg PO DAILY metoprolol succinate ER 50 mg PO QAM paroxetine HCl 40 mg PO DAILY pen needle, diabetic (Pam Pen Needle) USE DIRECTED ONCE A DAY trazodone 200 mg PO BEDTIME Tobacco use date assessed: 08/09/25 Fall risk assessment: No Falls in past year Last assessed Fall Risk: 08/09/25 Dental Screening Dental Screen Date: 08/09/25 Did you have a dental visit in the last 12 months?: Yes Did you have a dental problem in the last 6 months where you did not have access to dental care?: No Was dental information given to patient?: Patient has dentist HPI 2 months f/up 2 HPI Details The patient is a 80-year-old individual presenting for a follow-up visit for management of multiple chronic conditions. The patient has a history of osteoporosis and is completing treatment with Tymlos infusions, after which the patient will begin alendronate (Fosamax). A recent bone density scan showed improvement, with the spine now testing as normal, the left total hip as borderline osteoporotic (-2.5), and the left hip demonstrating osteopenia. The patient reports pain, which has been attributed to arthritis rather than osteoporosis. Neurologically, the patient is followed by Dr. Boles and has an MRI of the brain scheduled for September 02. The patient reports bad tremors but denies dropping things. The patient has a diagnosis of tardive dyskinesia from a previous neurologist, has a history of seizures with none reported recently, and experiences memory issues, though the patient denies having dementia or Alzheimer's. The patient exhibits a wide-based gait and receives physical therapy at home. Recent lab results from July 23 show normal thyroid function while on levothyroxine 175 mcg. Cholesterol labs from May showed slightly high triglycerides. The patient is currently taking atorvastatin, and liver enzymes were noted to be slightly elevated. Vitamin D level was normal when last checked. Other history includes a negative mammogram in April. The patient's current blood pressure reading was low at 90/62 mmHg, and the patient had taken losartan and a diuretic this morning without eating. [facility] Medical History Tardive dyskinesia Unsteady gait when walking Tremor of both outstretched hands Essential hypertension Hearing impairment Displaced fracture of right femoral neck Lumbar stenosis Mild cognitive impairment with memory loss Complex partial seizure Postmenopause Bipolar disorder Memory difficulties Acquired hypothyroidism Osteoporosis Dyslipidemia Recurrent falls Pain of right lateral upper thigh Surgical History History of right hip hemiarthroplasty Tongue lesion History of hip surgery History of dental surgery Family History Father Lung cancer Smoker Substance use disorder Mother HTN (hypertension) Diabetes mellitus CVD (cardiovascular disease) Substance use disorder Breast cancer Brother Schizophrenia Sister Depression Sister Substance use disorder Sister No problems noted. Sister No problems noted. Daughter No problems noted. Brother Substance use disorder Brother Mental health disorder Social History Housing: House Patient Tobacco Use Status: Former Tobacco user Years Smoked: 28 yrs e-Cigarette/Vaping Use: Never Used service: No Current occupational status: disabled Cognitive needs: No Hearing needs: No Vision needs: Yes Questionnaire PHQ-9 Over the last 2 weeks, how often have you been bothered by any of the following problems? Depression Screening Interpretation: Negative Depression Screening Done: Yes Source: Developed by Drs. Jacinto Burrows, David Roblero and colleagues, with an educational akash from [employer]. Thrive Questionnaire Date Thrive assessed: 04/21/25 I am a: Patient What is your living situation today?: I have a steady place to live Within the past 12 months, did the food you bought not last and you didn't have the money to get more?: Never true Within the past 12 months, did you worry whether your food would run out before you got money to buy more?: Never true Do you have trouble paying for medicines?: No Do you have trouble getting transportation to medical appointments?: No Do you have trouble paying your heating and electricity bill?: No Do you have trouble taking care of your child, family member or friend?: No Do you have trouble with day-to-day activities such as bathing, preparing meals, shopping, managing finances, etc.?: No Are you currently unemployed and looking for a job?: No Are you interested in more education?: No Please select the resources that you would like help with: None Currently or been in a relationship where the following occur: No concerns reported THRIVE Score: 0 DRE-7 AMB Questionnaire DRE-7 Date DRE - 7 assessed: 05/25/25 Source: Developed by Drs. Jacinto Burrows, Genesis Hubbard, David Clements and colleagues, with an educational akash from [employer]. Review of Systems Const Denies fatigue, Denies fever(s), Denies headache(s), Denies malaise, Denies weakness and Reports other (Part of the history obtained also from daughter who is accompanying patient) Eyes Reports no additional complaints ENT Denies vertigo, Denies dizziness, Denies headache(s) and Reports hearing loss Card Denies chest pain, Denies rapid heart rate, Denies irregular heart rhythm, Denies palpitations and Denies dyspnea Resp Denies cough and Denies dyspnea GI Reports no additional complaints Reports no additional complaints Musc Reports abnormal gait (Uses a cane), Reports back pain (Lower back), Denies myalgias, Reports arthralgias (Right hip), Denies joint swelling, Reports numbness (Toes in her feet) and Reports stiffness Neuro Reports abnormal gait (Uses a cane), Denies vertigo, Denies dizziness, Denies headache(s), Reports memory loss, Reports numbness (Toes in her feet), Denies seizure-like activity and Denies weakness Psych Reports as per HPI (Followed by Dr. Canales and gets regular counseling) and Reports memory loss Endo Reports no additional complaints, Denies fatigue and Denies palpitations Trung/Lymph Reports no additional complaints Aller/Immun Reports no additional complaints Physical exam (Primary Care) Vital Signs: Last Vital Signs Temp 97.9 F 08/09/25 08:24 Pulse 64 08/09/25 08:24 Resp 16 08/09/25 08:24 BP 90/62 08/09/25 08:24 Pulse Ox 95 08/09/25 08:24 Oxygen Delivery Method Room Air 08/09/25 08:24 BMI result Body Mass Index 28.3 Tobacco/Smoking Status: Tobacco use Status Tobacco use date assessed 08/09/25 08/09/25 08:32 Patient Tobacco Use Status Former Tobacco user 08/09/25 08:24 e-Cigarette/Vaping Use Never Used 08/09/25 08:24 Depression Screening Interpretation: Negative Thrive Assessment: Date of Thrive Assessment Date Thrive assessed 04/21/25 08/09/25 08:24 Currently or been in a relationship where the following occur: No concerns reported Const General: comfortable, no acute distress and alert Orientation/consciousness: patient oriented x3 HENMT Ears: external ears normal General nose exam: Normal external nose present Mouth: Normal oral and palatal mucosa present and moist mucous membranes Eyes General: appearance normal, both eyes and all related structures Pupils: Equal, round and reactive pupils present Neck Neck: Yes full ROM, Yes no lymphadenopathy and Yes supple Resp Effort & Inspection: normal respiratory effort and able to speak in complete sentences Auscultation: clear to auscultation bilaterally Cardio Rate: regular rate Rhythm: regular rhythm Heart sounds: S1 normal heart sound present and S2 normal heart sound present GI Palpation (GI): Soft to palpation, nontender and no masses Auscultation: normal bowel sounds Back/Spine/Pelvis Back: No back tenderness Skin General skin exam: no rashes or lesions noted Neuro Other: Mild tremors in hands noted bilateral General: patient oriented x3, gait normal, tone normal, moves all extremities, Normal light touch and pain sensation and no focal motor deficits Cranial nerves: Yes CN's II-XII intact bilaterally and Yes Equal, round and reactive pupils present Cognition (Neuro): normal cognition Extrem General: Yes full ROM, Yes no joint enlargement, Yes no clubbing, cyanosis or edema and Yes no calf tenderness Psych Appearance: grossly normal and well kempt Mental Status: mental status grossly normal Speech and movement: Normal speech and movement present Affect: normal affect Attitude: cooperative Immunizations pneumoc 20-padmini conj-dip cr(PF) 0.5 mL IM syringe Performing Provider: Lori Frank MD Performing Location: [facility] Administered by: Olivia Rawls CMA on 08/09/25 09:14 Dose Route Admin Location Dispensed Lot Number Expiration Date [facility] Personal Development Mentor 0.5 mL IM Left Deltoid 0.5 mL [id number] 11/12/25 [employer] /P[employer]ZER Total Dispensed Waste 0.5 mL 0 % VIS Given Date VIS Provided VIS Publication Date 08/09/25 Single Vaccine 25 Eligibility Eligibility Date Funding Source Not [facility] Eligible 08/09/25 Private Coding Diagnoses Dyslipidemia E78.5 Age-related osteoporosis without current pathological fracture M81.0 Osteoporosis type: age-related Presence of current pathological fracture: without current pathological fracture Acquired hypothyroidism E03.9 Essential hypertension I10 Assessment & Plan Assessment & Plan (1) Dyslipidemia: Code(s): E78.5 - Hyperlipidemia, unspecified Category: Medical (2) Osteoporosis: Code(s): M81.0 - Age-related osteoporosis without current pathological fracture Category: Medical Qualifiers: Osteoporosis type: age-related Presence of current pathological fracture: without current pathological fracture Qualified Code(s): M81.0 - Age- related osteoporosis without current pathological fracture (3) Acquired hypothyroidism: Code(s): E03.9 - Hypothyroidism, unspecified Category: Medical (4) Essential hypertension: Code(s): I10 - Essential (primary) hypertension Category: Medical Orders: Orders Pneumococcal 20 Immunization Today Z23 - Encounter for immunization Basic Metabolic Panel Fasting 10/22/25 E03.9 - Hypothyroidism, unspecified, E78.5 - Hyperlipidemia, unspecified, G40.209 - Localization-related (focal) (partial) symptomatic epilepsy and epileptic syndromes with complex partial seizures, not intractable, without status epilepticus, I10 - Essential (primary) hypertension, M81.0 - Age-related osteoporosis without current pathological fracture, Z78.0 - Asymptomatic menopausal state Free T4 (Free Thyroxine) 10/22/25 E03.9 - Hypothyroidism, unspecified, E78.5 - Hyperlipidemia, unspecified, G40.209 - Localization-related (focal) (partial) symptomatic epilepsy and epileptic syndromes with complex partial seizures, not intractable, without status epilepticus, I10 - Essential (primary) hypertension, M81.0 - Age-related osteoporosis without current pathological fracture, Z78.0 - Asymptomatic menopausal state Thyroid Stimulating Hormone 10/22/25 E03.9 - Hypothyroidism, unspecified, E78.5 - Hyperlipidemia, unspecified, G40.209 - Localization-related (focal) (partial) symptomatic epilepsy and epileptic syndromes with complex partial seizures, not intractable, without status epilepticus, I10 - Essential (primary) hypertension, M81.0 - Age-related osteoporosis without current pathological fracture, Z78.0 - Asymptomatic menopausal state Lipid Panel 10/22/25 E03.9 - Hypothyroidism, unspecified, E78.5 - Hyperlipidemia, unspecified, G40.209 - Localization-related (focal) (partial) symptomatic epilepsy and epileptic syndromes with complex partial seizures, not intractable, without status epilepticus, I10 - Essential (primary) hypertension, M81.0 - Age-related osteoporosis without current pathological fracture, Z78.0 - Asymptomatic menopausal state Alanine Aminotransferase 10/22/25 E03.9 - Hypothyroidism, unspecified, E78.5 - Hyperlipidemia, unspecified, G40.209 - Localization-related (focal) (partial) symptomatic epilepsy and epileptic syndromes with complex partial seizures, not intractable, without status epilepticus, I10 - Essential (primary) hypertension, M81.0 - Age-related osteoporosis without current pathological fracture, Z78.0 - Asymptomatic menopausal state Aspartate Amino Transferase 10/22/25 E03.9 - Hypothyroidism, unspecified, E78.5 - Hyperlipidemia, unspecified, G40.209 - Localization-related (focal) (partial) symptomatic epilepsy and epileptic syndromes with complex partial seizures, not intractable, without status epilepticus, I10 - Essential (primary) hypertension, M81.0 - Age-related osteoporosis without current pathological fracture, Z78.0 - Asymptomatic menopausal state Vitamin D 25-OH Total 10/22/25 E03.9 - Hypothyroidism, unspecified, E78.5 - Hyperlipidemia, unspecified, G40.209 - Localization-related (focal) (partial) symptomatic epilepsy and epileptic syndromes with complex partial seizures, not intractable, without status epilepticus, I10 - Essential (primary) hypertension, M81.0 - Age-related osteoporosis without current pathological fracture, Z78.0 - Asymptomatic menopausal state
--- OUTSIDE RECORDS SUMMARY | 2025-08-09 08:26 | XMS_ITS | Clinical Summary ---
Author Organization [facility] it Address [address] [place] [address] Care Team Providers Care Starting Sheet Tank Operator Name Role Phone Unavailable Primary Care Provider [...] Depression Screening 09/15/2024 COVID-19 Vaccine ( - 2024-2 6 season) 2025 Influenza Vaccine (#1) 2025 HIB [...]
--- OUTSIDE RECORDS SUMMARY | 2025-08-09 08:26 | XMS_ITS | Clinical Summary ---
Author Organization [facility] Facility Address [address] [place] [address] Care Team Providers Care Assistant Professor Of Surgery Name Role Phone Wilber Frank MD Primary Care Provider +1- [phone] Family History Medical History Relation Comments Diabetes [...] patient's age to complete this topic Insurance [facility] Care Dual SNP ([id number]) [place] [id number] [facility] One Care Dual SNP ([id number]) [place] [id number] Care Teams Assistant Professor Of Surgery Relationship Specialty Start Date End Date Wilber Frank MD PCP - General 09/25/20
== END 2025-08-09 09:16 | disposition home or self-care (01) ==
LOC: HO.HMCC 08:15
PROVIDERS: PCP Internal Medicine; Visit Provider Internal Medicine
DX: Z23 Encounter for immunization (principal)

== ENCOUNTER → 2025-08-09 08:14 | Outpatient (BNVA) | payer OTHER, SELFPAY | PROVIDERS: PCP Internal Medicine; Visit Provider Internal Medicine | DX: M81.0 Age-related osteoporosis without current pathological fracture (principal); E78.5 Hyperlipidemia, unspecified; E03.9 Hypothyroidism, unspecified; I10 Essential (primary) hypertension; Z23 Encounter for immunization | CPT/HCPCS: 90471; 90677; 99212 ==

== ENCOUNTER → 2025-08-17 23:59 | Outpatient (BNV) | payer OTHER, SELFPAY | PROVIDERS: PCP Internal Medicine; Visit Provider Psychiatry & Neurology Neurology | DX: G24.01 Drug induced subacute dyskinesia (principal); G30.0 Alzheimer's disease with early onset; F31.70 Bipolar disorder, currently in remission, most recent episode unspecified; I10 Essential (primary) hypertension | CPT/HCPCS: G0180 ==

== ENCOUNTER → 2025-09-02 09:37 | Outpatient (BNV) | payer OTHER, SELFPAY | PROVIDERS: PCP Internal Medicine; Visit Provider Radiology Diagnostic Radiology | DX: I67.82 Cerebral ischemia (principal); G31.9 Degenerative disease of nervous system, unspecified | CPT/HCPCS: 70551 ==

== ENCOUNTER 2025-09-02 09:39 | Outpatient (REF) | payer OTHER, SELFPAY ==
--- OUTSIDE RECORDS SUMMARY | 2024-08-20 09:14 | XMS_ITS ---
Author Organization - [facility] Address [address] [place] [address] Care Team Providers Care Securities Consultant Name Role Phone JACINTO, WAN Unavailable [phone] REASON FOR VISIT *Initial Care Plan Encounters Encounter Location Date Provider Diagnosis - [facility] [address] [facility] [address] [place] [address] 08/20/2024 WAN CASEY Assessments Encounter Date Diagnosis (ICD Code) Assessment Notes Treatment Notes Treatment Clinical Notes Section Notes 08/20/2024 SBAR/SOAP _. Plan Of Treatment No Information Procedure Notes * Category Sub-Category Detail Notes Visit Information Net Promoter Score Please stat e a number 0-10 on the likeliness of you recommending our program to friends or family if they needed our support? 0 being not at all and 10 being most likely.: . RN Interventions Recommendations for Next Visi t . Initial RN Interventions Care Plan Established: Yes Reviewed 07/04 Care Line and Let Us Know Before you Go : Yes Did member require escalation?: . Does member require Care Team Collaborat ion?: . Medication Adherence Reviewed: . Additional Interventions: . Progress Notes * Janeen STANLEYeDOB:1945 (80 yo F)Acc No.[id number]:08/20/2024 Patient: Zachary SANTANA Provider: Janny CASEY NP :1945 A ge:79 Y S ex:Female Date:08/20/2024 Address:[address] [place], [id number] Subjective: * Chief Complaints: * 1 . *Initial Care Plan. * HPI: * *Visit Details: Visit Details P atient/Member Location . V isit Participants . M samaria Updates: Contact Preferences P referred Communication . P referred Contact Days . P referred Contact Times . P rimary Contact . Care Team R eviewed Emergency contacts with POC and updated as needed in Dash . R eviewed Home Health Aide/Attendant Information with POC and updated in DASH as needed . Community Providers P CP information confirmed and updated in Dash as needed. . P harmacy confirmed and updated in eCW Info/Dash as needed . Member Information C ontact Preference confirmed and up dated in Dash if needed . L anguage Preference confirmed and updated in eCW Info as needed. . H ome Situation . S elf-Directing? . Current Services D oes member receive Community or Home-Based Services? . Fall Assessment H as member had a fall since last contact??. Utilization H as member had a stand alone ER visit since last contact? . H as member had an admission to the hospital since last contact? . Change in Condition A ny changes in ADL's or IADL's since last contact? . Medication Updates A ny changes in medications since last contact? ( only if onboarding in past 4 weeks, otherwise full medication review required). All meds should have a dose, frequency, route, and reason for taking. RPM D oes member have RPM device? . DME D oes member use DME? . * Medical History: Objective: * Vitals: * Physical Examination: Margaret messer RN: PERS D oes member have a PERS? . RPM D id DRIVER RETRAINING INSTRUCTOR order RPM? . DME/Supplies D id DRIVER RETRAINING INSTRUCTOR order DME/Supplies? . ACP Forms D id DRIVER RETRAINING INSTRUCTOR Request ACP Forms? . Assessment: * Assessment: SBAR/SOAP _. Plan: * Treatment: * Procedures: V isit Information: Net Promoter Score P lease state a number 0-10 on the likeliness of you recommending our program to friends or family if they needed our support? 0 being not at all and 10 being most likely. . * *RN Interventions: Recommendations for Next Visit . . Initial RN Interventions C are Plan Established Y andressa west 07/04 Care Line and Let Us Know Before you Go Y es D id member require escalation? . D oes member require Care Team Collaboration??. M edication Adherence Reviewed . A dditional Interventions . Care Plan: * Problems: * Billing Information: * Visit Code: * Procedure Codes: Care Plan Details* * Electronic signature of WAN CASEY NP on 09/02/2025 at 10:29 AM EST Sign off status: Pending * Provider: Janny CASEY DRIVER RETRAINING INSTRUCTOR Date: 10/21/2023 Generated for Santiago munoz/Danish/Steffanie on: 11/03/2024 10:29 AM EST History and Physical Notes * HPI (History of Present Illness) Category Sub-Category Detail Notes Category Not es Member Updates Contact Preferences Preferred Communication : . Preferred Contact Days: . Preferred Contact Times: . Primary Contact: . Care Team Reviewed Emergency contacts with POC and updated as needed in Dash: . Reviewed Home Health Aide/At tendant Information with POC and updated in DASH as needed: . Community Providers PCP information confirmed an d updated in Dash as needed.: . Pharmacy confirmed and updated in eCW In fo/Dash as needed: . Member Information Contact Preference confirmed and up dated in Dash if needed: . Language Preference confirmed and update d in eCW Info as needed.: . Home Situation: . Self-Directing?: . Current Services Does member receive Community o r Home-Based Services?: . Fall Assessment Has member had a fall since last contact?: . Utilization Has member had a stand alone ER visit since last contact?: . Has member had an admission to the [facility] since last contact?: . Change in Condition Any changes in ADL's or IADL's since last contact?: . Medication Updates Any changes in medic ations since last contact?: (only if onboarding in past 4 weeks, otherwise full medication review required). All meds should have a dose, frequency, route, and reason for taking. RPM Does member have RPM device?: . DME Does member use DME?: . Visit Details Visit Details Patient/Member Location: . Visit Participants: . Physical Examination Category Sub-Category Detail Notes Section Note s Initial RN PERS Does member have a PERS?: . RPM Did DRIVER RETRAINING INSTRUCTOR order RPM?: . DME/Supplies Did DRIVER RETRAINING INSTRUCTOR order DME/Supplies?: . ACP Forms Did DRIVER RETRAINING INSTRUCTOR Request ACP Forms?: .
--- NOTE | ~2025-09-02 | MR_ITS ---
EXAMINATION: MR BRAIN WITHOUT CONTRAST CLINICAL INFORMATION: [place] 31.84 COMPARISON: January 22, 2021 TECHNIQUE: MRI of the brain was obtained using routine sequences without contrast. FINDINGS: No restricted diffusion. No acute intracranial hemorrhage, mass effect, midline shift, hydrocephalus or herniation. Narvaez-white matter differentiation is normal. Multifocal patchy and punctate deep periventricular white matter hyperintense T2 FLAIR signal involving centrum semiovale, salguero radiata both hemispheres. Hyperintense T2 signal within the putamen without gross susceptibility signal. Prominence of the extra-axial CSF spaces cerebral sulci and ventricles. Sellar/suprasellar region is normal. Craniocervical junction is intact with normal position of the cerebellar tonsils. Flow-void signal within the main cerebral vessels is normal. No signal abnormality within the hippocampi. MR/MR head/brain wo con IMPRESSION: Global cerebral atrophy. No acute brain abnormality. Small vessel occlusive disease. Electronically signed by: Aime Valerio MD 09/02/2025 11:08 AM RYAN
--- OUTSIDE RECORDS SUMMARY | 2025-09-02 10:29 | XMS_ITS | Clinical Summary ---
Author Organization [facility] Facility Address [address] [place] [id number] Care Team Providers Care Spool Sander Name Role Phone Wilber Frank MD Primary Care Provider [phone] Family History Medical History Relation Comments Diabetes [...] patient's age to complete this topic Insurance [facility] Care Dual SNP ([id number]) [place] [id number] FORMERLY [facility] One Care Dual SNP ([id number]) [place] [id number] Care Teams Spool Sander Relationship Specialty Start Date End Date Wilber Frank MD PCP - General 09/25/20
--- OUTSIDE RECORDS SUMMARY | 2025-09-02 10:29 | XMS_ITS | Patient Health Record ---
Author Organization - [facility] Address [address] [place] [address] Allergies Allergen (clinical drug ingredient) Drug/Non Drug Allergy documented on EMR Reaction Allergy Type Onset Date Status ibuprofen Advil Unknown Drug Allergy Active Penicillin Unknown Drug Allergy Active Reason For Referral No Information Medications Medication SIG (Take, Route, Frequency, Duration) Notes Start Date End Date Status Levothyroxine Sodium 150 MCG TAKE 1 TABL ET BY MOUTH ONCE DAILY Oral; Duration: 30 Days Unknown Atorvastatin Calcium 10 MG TAKE 1 TABLET BY MOUTH ONCE DAILY Oral; Duration: 30 Days Unknown lamoTRIgine 200 MG Oral; Duration: 30 Days Unknown clonazePAM 1 MG Oral; Duration: 30 Days Unknown hydroCHLOROthiazide 25 MG Oral; Duration : 30 Days Unknown Tymlos 3120 MCG/1.56ML Subcutaneous; Duration: 30 Days Unknown traZODone HCl 100 MG TAKE 1-2 TABLETS BY MOUTH AT BEDTIME NEEDED Oral; Duration: 30 Days Unknown PARoxetine HCl 40 MG Oral; Duration: 30 Days Unknown traZODone HCl 100 MG Oral; Duration: 30 Days Unknown Losartan Potassium 100 MG Oral; Duration : 30 Days Unknown Metoprolol Succinate ER 50 MG Oral; Dura tion: 30 Days Unknown Social History Tobacco Use: Social History Observation Description Date Details (start date - stop date) Former Smoker NA - NA Tobacco Control (Standard) Question Answer Notes Tobacco use: Former smoker Section Notes: Former smoker- quit at age 26 No alcohol use Problems Problem Type SNOMED Code ICD Code Onset Dates Problem Status W/U Status Risk Notes Problem Localized, primary osteoarthritis of the hand (722936544) Primary osteoarthritis of right hand (M19.041) Active confirmed Problem Mild cognitive disorder (489996913) MCI (mild cognitive impairment) (G31.84) Active confirmed Problem Bipolar disorder (94617192) Bipolar affective disorder, remission status unspecified (F31.9) Active confirmed Problem Seizure (19467714) Seizure (R56.9) Active confi rmed Problem Unsteady gait (94603677) Unsteady gait (R26.81) Active confirmed Problem Hypothyroidism (14299510) Hypothyroidism, unspecified type (E03.9) Active confirmed Problem History of fall (360145495) History of fall (Z91.81) Active confirmed Problem Hyperlipidaemia (84767519) Hyperlipidemia, unspecified hyperlipidemia type (E78.5) Active confirmed Problem Problems related to living alone (672348949324211) Problems related to living alone (Z60.2) Active confirmed Problem Age-related osteoporosis (796594553) Age-related osteoporosis without current pathological fracture (M81.0) Active confirmed Problem Essential hypertension (70150802) Essential (primary) hypertension (I10) Active confirmed Plan Of Treatment No Information Insurance Providers Payer Name Payer Address Payer Phone Subscriber Number Group Number Insured Name Patient Relationship to Insured Coverage Start Date Coverage End Date [employer] [facility] [address] [place] [phone] [id number] Zachary Stanley Self - patient is the insured 9 Medicaid of [facility] [address] [place] [phone] [id number] Janeen Stanleynam Self - patient is the insured Medicare of [facility] [address] [place] [address] [phone] [id number] Zachary Stanley Self - patient is the insured Medical (General) History Medical History History ICD Code Essential (primary) hypertension I10 Hyperlipidemia, unspecified hyperlipidem ia type E78.5 Hypothyroidism, unspecified type E03.9 Seizure R56.9 Age-related osteoporosis without current pathological fracture M81.0 Bipolar affective disorder, remission st atus unspecified F31.9 Unsteady gait R26.81 History of fall Z91.81 MCI (mild cognitive impairment) G31.84 Primary osteoarthritis of right hand M19 .041 Surgical History Surgery Date(Month/Year) Right hip replacement 2020 Hospitalization History Reason Date(Month/Year) Chest pain 2022
--- OUTSIDE RECORDS SUMMARY | 2025-09-02 10:29 | XMS_ITS | Clinical Summary ---
Author Organization [facility] it Address [address] [place] [address] Care Team Providers Care Brand Marketing Specialist Name Role Phone Unavailable Primary Care Provider [...]
== END 2025-09-02 09:40 | disposition home or self-care (01) ==
LOC: HO.MRI 09:39
PROVIDERS: PCP Internal Medicine; Visit Provider Psychiatry & Neurology Neurology
DX: G31.84 Mild cognitive impairment of uncertain or unknown etiology (principal); G24.01 Drug induced subacute dyskinesia
CPT/HCPCS: 70551